=== PATIENT | female | born 1965 | race Caucasian/White ===

== ENCOUNTER 2018-01-06 08:30 | Outpatient (RCR) | payer BC, SELFPAY | END 2018-01-06 08:31 | disposition home or self-care (01) | LOC: PT 08:30 | PROVIDERS: Family Provider Family Medicine; Visit Provider Orthopaedic Surgery Sports Medicine | DX: M25.511 Pain in right shoulder (principal); M75.101 Unspecified rotator cuff tear or rupture of right shoulder, not specified as traumatic | CPT/HCPCS: 97010; 97014; 97016; 97110; 97140; 97163; 97164; G0283 ==

== ENCOUNTER → 2018-05-04 12:20 | Outpatient (CLI) | payer BC, SELFPAY ==
--- NOTE | 2018-05-04 12:29 | XR_ITS ---
XR knee LT 3V HISTORY: ITS.REASON: LEFT KNEE PAIN ORDERING PHYSICIAN: Chapin Mederos MD PATIENT AGE: 53 years COMPARISON: None FINDINGS: No fracture or dislocation. No lytic or blastic change. Normal mineralization. Minimal osteoarthritic changes are present at the medial compartment and patellofemoral joint with minimal osteophyte at the posterior patella and minimal osteosclerosis with slight decrease in the joint space at the medial compartment. There are small rounded soft tissue calcifications along the pretibial region superiorly which may be due to phleboliths. IMPRESSION: Minimal osteoarthritis
== END ==
PROVIDERS: PCP Family Medicine; Visit Provider Family Medicine
DX: M25.562 Pain in left knee (principal)
CPT/HCPCS: 73562

== ENCOUNTER 2020-12-05 18:04 | Emergency (ER) | payer BC, SELFPAY ==
[2020-12-05 18:17] VITALS: BP 139/86; PULSE 68; RESP 19; TEMP 36.8; O2SAT 68; BMI 43.7
--- NOTE | 2020-12-05 18:22 | XR_ITS ---
PROCEDURE INFORMATION: Exam: XR Left Shoulder Exam date and time: 12/05/20 06:22 PM Age: 55 years old Clinical indication: Injury or trauma; Blunt trauma (contusions or hematomas); Shoulder; Left; Patient HX: Fall, pain, PT unable to fully pull arm across body TECHNIQUE: Imaging protocol: XR Left shoulder. Views: 2 or more views. COMPARISON: No relevant prior studies available. FINDINGS: Bones/joints: Normal. Soft tissues: Normal. IMPRESSION: No acute findings.
--- NOTE | 2020-12-05 18:24 | HMH.EDUTC ---
[facility] [place] Disposition Clinical Impression: Shoulder contusion Qualifiers: Encounter type: initial encounter Laterality: left Qualified Code(s): S40.012A - Contusion of left shoulder, initial encounter Disposition: Home, Self-Care Condition on Discharge: Good Instructions: DI for Shoulder Pain, How to Use a Sling, Ibuprofen Additional Instructions: *RICE, Rest the extremity, Ice 15-20 minutes 3-4 times daily, Compress- wear the jesse wrap as discussed as much as possible to help reduce swelling and pain, Elevate the extremity when at rest *Sling is for support and help control swelling, use it except in the shower. Be sure that is not to tight but not to loose either *Elevate when resting *Ibuprofen every 6-8 hours as needed for pain an inflammation if your Doctor has said that you can take it. If need something more can take Tylenol in between doses of Ibuprofen to help Immediately follow up with your family doctor for new or worsening of symptoms, or no noticeable improvement over the next 3-5 days Follow up with Orthopedics as scheduled Return if needed Straight to ER if any life threatening symptoms Referrals: Chapin Mederos MD [Primary Care Provider] - As needed Time of Disposition: 18:51 Medical Decision Making - Patrick Inquiry Pt receiving controlled substance: No Patrick was queried for this patient: No Vital Signs: 12/05/20 18:17 Temperature 98.3 F Temperature Source Oral Pulse Rate [Right Brachial] 68 Respiratory Rate 19 Blood Pressure [Right Arm] 139/86 Blood Pressure Mean [Right Arm] 103 Blood Pressure Source [Right Arm] Automatic Cuff Blood Pressure Position [Right Arm] Sitting 02 Sat by Pulse Oximetry 68 L - Radiology Data #1 Image(s): Shoulder Image Reviewed: Yes I have reviewed radiologist's interpretation IMPRESSION: No acute findings. [facility] [place] HPI - General Stated complaint: AO 12/04/20 Fell;hurt shoulder Time Seen by Provider: 12/05/20 18:24 Mode of Arrival: Ambulatory Description of Symptoms (Recalled from Triage Doc. by RN): Pt states that she was in her yard yesterday afternoon when she stepped in a hole causing her to fall and injuring her left shoulder HEENT Symptoms (Recalled from RN notes): No Resp Symptoms (Recalled from RN notes): No Skin Symptoms (Recalled from RN notes): No MS Symptoms (Recalled from RN notes): Yes Functional Status (Recalled from RN notes): wnl - History of Present Illness Provider Complaint: Patient states she was walking in her yard yesterday when she stepped in a hole and fell landing on her left shoulder and having pain when she tries to raise her arm States that she feels like she tore something State that she tried to get in to her PCP today but couldnt get in and told her to come here and get checked - Related Data Home Medications Medication Instructions Recorded Confirmed lisinopril 20 1 tab PO DAILY tab 11/10/17 10/21/20 mg-hydrochlorothiazide 12.5 mg tablet Allergies Allergy/AdvReac Type Severity Reaction Status Date / Time No Known Allergies Allergy Verified 10/21/20 08:42 - Worker's Comp Is this a Worker's Comp case?: No [facility] History - Hepatitis A Screen Drug use history?: No High risk sexual behaviors?: No History of sexually transmitted infection?: No Currently employed?: No Childcare worker?: No Do you have indoor plumbing?: Yes Do you have electricity?: Yes Attestation statement:: This patient has been screened for Hepatitis A risk factors. I have reviewed the patient's past medical history: Yes Medical History: Reports:: Hypertension Other Surgeries: Yes: Colonoscopy, , Other Amputation: No Fractures: No Comment: Right rotator cuff - Social History Smoking Status: Never smoker Alcohol Intake: never Alcohol Intake Frequency:: holidays/special occasions only Substance Use Type: denies use Occupational Status: employed Housing: house Household Members: spouse Family Hx:: Heart Attack, Diab
[2020-12-05 18:54] VITALS: BP 138/90; PULSE 60; RESP 16; TEMP 36.8; O2SAT 98
== END 2020-12-05 18:55 | disposition home or self-care (01) ==
PROVIDERS: Emergency Provider Nurse Practitioner; PCP Family Medicine
DX: S40.012A Contusion of left shoulder, initial encounter (principal); W17.2XXA Fall into hole, initial encounter; Y92.017 Garden or yard in single-family (private) house as the place of occurrence of the external cause; I10 Essential (primary) hypertension
CPT/HCPCS: 73030; 99202; G0463

== ENCOUNTER → 2021-04-29 08:56 | Outpatient (CLI) | payer BC, SELFPAY ==
--- NOTE | 2021-04-29 08:58 | XR_ITS ---
PROCEDURE: XR DEXA AXIAL SKELETON CLINICAL HISTORY: POST MENOPAUSAL COMPARISON: No exams were available for comparison FINDINGS: The right hip BMD is 0.752 with a T-score of -0.9. The left hip BMD is 0.932 with a T-score of 0.8. The lumbar spine BMD is 1.112 with a T-score of 0.6. IMPRESSION: This patient is considered normal according to the World Health Organization criteria. Fracture risk is low. Based on these results a follow-up exam is recommended in 2 year. Dictated by: Kaushik Gallegos MD 04/29/2021 13:43 Kaushik Gallegos MD in [place] 04/29/2021 13:43
== END ==
PROVIDERS: PCP Family Medicine; Visit Provider Family Medicine
DX: N95.9 Unspecified menopausal and perimenopausal disorder (principal)
CPT/HCPCS: 77080

== ENCOUNTER 2021-08-10 08:30 | Outpatient (RCR) | payer BC, SELFPAY | END 2021-08-10 08:35 | disposition home or self-care (01) | LOC: PT 08:30 | PROVIDERS: PCP Family Medicine; Visit Provider Orthopaedic Surgery | DX: S46.012D Strain of muscle(s) and tendon(s) of the rotator cuff of left shoulder, subsequent encounter (principal); M75.22 Bicipital tendinitis, left shoulder; M75.42 Impingement syndrome of left shoulder; M75.52 Bursitis of left shoulder; Z98.890 Other specified postprocedural states | CPT/HCPCS: 97010; 97014; 97016; 97110; 97140; 97163; 97164; G0283 ==

== ENCOUNTER 2021-09-07 20:16 | Emergency (ER) | payer BC, SELFPAY ==
[2021-09-07 20:37] VITALS: BP 165/78; PULSE 88; RESP 18; TEMP 36.8; O2SAT 99; BMI 51.5
--- NOTE | 2021-09-07 20:38 | XR_ITS ---
PROCEDURE INFORMATION: Exam: XR Right Tibia and Fibula Exam date and time: 09/07/2021 9:15 PM Age: 56 years old Clinical indication: Injury or trauma; Fall; Blunt trauma; Lower leg; Right TECHNIQUE: Imaging protocol: XR Right tibia and fibula. Views: 2 views. COMPARISON: CR XR KNEE RT 3V 09/07/2021 9:12 PM FINDINGS: Bones/joints: No acute fracture or dislocation. Calcaneal spurring. Soft tissues: Soft tissue laceration involving the anterior infrapatellar region anterior to the tibial tuberosity. IMPRESSION: Soft tissue laceration involving the anterior infrapatellar region anterior to the tibial tuberosity. No underlying acute fracture or dislocation
--- NOTE | 2021-09-07 20:38 | XR_ITS ---
PROCEDURE INFORMATION: Exam: XR Chest Exam date and time: 09/07/2021 9:05 PM Age: 56 years old Clinical indication: Injury or trauma; Fall; Blunt trauma (contusions or hematomas) TECHNIQUE: Imaging protocol: XR of the chest. Views: 2 views. COMPARISON: CR XR SHOULDER LT MIN 2V 12/05/2020 6:21 PM FINDINGS: Lungs: Unremarkable. No consolidation. Pleural spaces: Unremarkable. No pleural effusion. No pneumothorax. Heart/Mediastinum: Unremarkable. No cardiomegaly. Bones/joints: Unremarkable. IMPRESSION: No acute findings.
--- NOTE | 2021-09-07 20:38 | XR_ITS ---
PROCEDURE INFORMATION: Exam: XR Right Hip Exam date and time: 09/07/2021 9:09 PM Age: 56 years old Clinical indication: Hip pain; Right hip; Additional info: Fall TECHNIQUE: Imaging protocol: XR Right hip. Views: 2 or 3 views hip with pelvis when performed. COMPARISON: No relevant prior studies available. FINDINGS: Bones/joints: Unremarkable. No acute fracture. Soft tissues: Unremarkable. IMPRESSION: No acute findings.
--- NOTE | 2021-09-07 20:38 | XR_ITS ---
PROCEDURE INFORMATION: Exam: XR Right Knee Exam date and time: 09/07/2021 9:12 PM Age: 56 years old Clinical indication: Injury or trauma; Fall; Blunt trauma and laceration; Right; Patella or knee; Foreign body involvement not specified TECHNIQUE: Imaging protocol: XR Right knee. Views: 3 views. COMPARISON: No relevant prior studies available. FINDINGS: Bones/joints: Normal. No acute fracture or dislocation. Soft tissues: Soft tissue laceration involving the anterior knee anterior to the proximal tibia. IMPRESSION: Soft tissue laceration involving the anterior infrapatellar region but no underlying acute bony abnormality
--- NOTE | 2021-09-07 20:49 | HMH.EDWNDL ---
ED Disposition Clinical Impression: Laceration of lower leg Qualifiers: Encounter type: initial encounter Laterality: right Qualified Code(s): S81.811A - Laceration without foreign body, right lower leg, initial encounter Disposition: Home, Self-Care Condition on Discharge: Good Instructions: DI for Laceration Repair Additional Instructions: suture check in about 3 days and recheck if any problems Prescriptions: cephALEXin [cephALEXin 500mg capsule*] 500 mg PO TID #30 cap Transmission Status: Pending to [id number] Referrals: Altagracia Marlow PA [Primary Care Provider] - - Critical Care Critical Care Time: No Attestation: On 09/07/21, the high probability of a clinically significant, sudden or life threatening deterioration of the following system(s) required my full and direct attention, intervention and personal management. The time I documented below is in addition to time spent performing reported procedures but includes the following listed in this critical care notation. Medical Decision Making - Medical Records Medical records reviewed: Yes: I reviewed the patient's medical records. - Patrick Inquiry Pt receiving controlled substance: No Vital Signs: 09/07/21 20:37 09/07/21 21:00 Temperature 98.2 F Temperature Source Oral Pulse Rate 85 Pulse Rate [Apical] 88 Respiratory Rate 18 Blood Pressure 132/59 L Blood Pressure [Right Arm] 165/78 H Blood Pressure Mean [Right Arm] 107 Blood Pressure Source [Right Arm] Automatic Cuff Blood Pressure Position [Right Arm] Sitting 02 Sat by Pulse Oximetry 99 97 Oxygen Delivery Method Room Air Room Air Orders (Tests/Meds): ED MEDICATIONS Discontinued Medications Generic Name Dose Route Start Last Admin Trade Name Freq PRN Reason Stop Dose Admin Tetanus/Diphtheria Toxoids 0.5 ml 09/07/21 20:38 09/07/21 20:50 Tetanus-Diphth Toxoid, Adult 0.5ml Syr IM 09/07/21 20:39 0.5 ml .ONCE ONE Administration - Radiology Data #1 Image(s): Chest, Pelvis, Hip, Knee, Tib/Fib Image Reviewed: Yes I have reviewed radiologist's interpretation Preliminary Findings: No Fracture Seen Medical Decision Narrative: large lac rt lower leg requiring horz matress suture and simple suture Wound/Laceration HPI - General Chief Complaint: Wound/Laceration Stated Complaint: AO 09/07@1930 LAC r LEG Time Seen by Provider: 09/07/21 20:49 Mode of Arrival: Wheelchair Source of Information: Patient, Medical Record Limitations: No Limitations Description of Symptoms (Recalled from ER Triage Doc. by RN): Patient states that at approximately 1930 she was walking down her outside steps when a wooden one broke cutting her right corley. - History of Present Illness HPI narrative: acute fall with rt ant leg injury with 6 cm lac - c/o of hip pain but no chest or abd pain and no loc Onset (ago): hour(s) Extremity Location: Right: lower leg Place: home Patient tetanus UTD: No Context: fall Associated symptoms: none - Related Data Home Medications Medication Instructions Recorded Confirmed lisinopril 20 1 tab PO DAILY tab 11/10/17 10/21/20 mg-hydrochlorothiazide 12.5 mg tablet Previous Rx's Medication Instructions Recorded cephALEXin [cephALEXin 500mg 500 mg PO TID #30 cap 09/07/21 capsule*] Allergies Allergy/AdvReac Type Severity Reaction Status Date / Time No Known Allergies Allergy Verified 10/21/20 08:42 [facility] History - Hepatitis A Screen Drug use history?: No High risk sexual behaviors?: No History of sexually transmitted infection?: No Currently employed?: No Childcare worker?: No Do you have indoor plumbing?: Yes Do you have electricity?: Yes Attestation statement:: This patient has been screened for Hepatitis A risk factors. I have reviewed the patient's past medical history: Yes Medical History: Reports:: Hypertension Other Surgeries: Yes: Colonoscopy, , Other Amputation: No
[2021-09-07 21:00] VITALS: BP 132/59; PULSE 85; O2SAT 97
--- NOTE | 2021-09-07 21:33 | PC.NURSE ---
Pt back from RAD
[2021-09-07 23:05] VITALS: BP 132/59; PULSE 85; RESP 18; TEMP 37.1; O2SAT 97
== END 2021-09-07 23:08 | disposition home or self-care (01) ==
PROVIDERS: Emergency Provider Emergency Medicine; PCP Physician Assistant
DX: S81.811A Laceration without foreign body, right lower leg, initial encounter (principal); W10.9XXA Fall (on) (from) unspecified stairs and steps, initial encounter; Y92.019 Unspecified place in single-family (private) house as the place of occurrence of the external cause; I10 Essential (primary) hypertension; Z23 Encounter for immunization
CPT/HCPCS: 29505; 12032; 71046; 73502; 73562; 73590; 90714; 96372; 99283

== ENCOUNTER → 2021-09-24 20:44 | Outpatient (CLI) | payer BC, SELFPAY ==
[2021-09-24 21:06] VITALS: BMI 54.6
== END ==
PROVIDERS: PCP Emergency Medicine; Visit Provider Emergency Medicine
DX: S81.811D Laceration without foreign body, right lower leg, subsequent encounter (principal); B95.8 Unspecified staphylococcus as the cause of diseases classified elsewhere
CPT/HCPCS: 87070; 87077; 87186; 87205; J0696

== ENCOUNTER → 2021-09-28 10:36 | Outpatient (CLI) | payer BC, SELFPAY | LOC: LAB 09-29 10:38 → LAB.DROPOF 09-29 10:53 | PROVIDERS: PCP Emergency Medicine; Visit Provider Physician Assistant | DX: S81.811A Laceration without foreign body, right lower leg, initial encounter (principal) | CPT/HCPCS: 87070; 87077; 87186; 87205 ==

== ENCOUNTER → 2022-05-03 17:54 | Outpatient (CLI) | payer BC, SELFPAY ==
[2022-05-03 18:54] LABS: Alanine Aminotransferase 30 U/L (12-78); Albumin Level 4.4 g/dl (3.5-5.0); Albumin/Globulin Ratio 1.5 (1.1-1.8); Alkaline Phosphatase 92 U/L (38-126); Anion Gap 7.5 mEq/L (5-15); Aspartate Amino Transferase 29 U/L (14-36); Bilirubin,Total 0.3 mg/dl (0.2-1.3); Blood Urea Nitrogen 21 mg/dl (7-17); Carbon Dioxide 30 mmol/L (22.0-30.0); Chloride 103 mmol/L (98-107); Chol/HDL Ratio 4.3 (1-3.5); Cholesterol 190 mg/dl (140-200); Estimated Glomerular Filt Rate 86 ml/min (>60); GFR (African American) 104 ML/MIN (>60); Glucose 105 mg/dl (74-100); HDL Cholesterol 44 mg/dl (40-60); Potassium 4.5 mmoL/L (3.5-5.1); Sodium 136 mmol/L (136-145); Total Protein,Serum 7.4 g/dl (6.3-8.2); Triglycerides 196 mg/dl (30-150); VLDL Cholesterol 39 mg/dL (0-40)
[2022-05-03 19:04] LABS: Direct LDL Cholesterol 115.82 mg/dL (100-129)
[2022-05-03 19:07] LABS: Hemoglobin A1C 6.7 % (4.0-6.0)
[2022-05-03 19:11] LABS: 25-OH Vitamin D, Total 16.1 ng/mL (30-100); Basophils # 0.1 K/mm3 (0-0.2); Basophils % 0.8 % (0.1-2.0); Eosinophils # 0.4 K/mm3 (0.0-0.4); Eosinophils % 3.8 % (0.1-12.0); Hematocrit 40.7 % (37.0-47.0); Hemoglobin 13.6 g/dL (12.2-16.2); Lymphocytes # 3.6 K/mm3 (0.7-4.5); Lymphocytes % 33.9 % (10-50); Mean Corpuscular HGB Conc 33.4 g/dL (31.8-35.4); Mean Corpuscular Hemoglobin 29.5 pg (27.0-31.2); Mean Corpuscular Volume 88.2 fl (81-99); Monocytes # 0.4 K/mm3 (0.1-1.0); Monocytes % 3.9 % (1.7-9.3); Neutrophils # 6.2 K/mm3 (1.8-7.8); Neutrophils % 57.6 % (37.0-80.0); Platelet Count 376 K/mm3 (142-424); Red Blood Count 4.62 M/mm3 (4.20-5.40); Red Cell Distribution Width 12.8 % (11.5-17.5); White Blood Count 10.7 K/mm3 (4.8-10.8)
== END ==
PROVIDERS: Visit Provider Physician Assistant
DX: E11.9 Type 2 diabetes mellitus without complications (principal); E55.9 Vitamin D deficiency, unspecified; Z79.84 Long term (current) use of oral hypoglycemic drugs
CPT/HCPCS: 80053; 80061; 82306; 83036; 84443; 85025

== ENCOUNTER → 2022-08-30 09:12 | Outpatient (CLI) | payer BC, SELFPAY | PROVIDERS: PCP Physician Assistant; Visit Provider Physician Assistant | DX: E11.9 Type 2 diabetes mellitus without complications (principal); Z79.84 Long term (current) use of oral hypoglycemic drugs ==

== ENCOUNTER → 2022-08-30 14:20 | Outpatient (CLI) | payer BC, SELFPAY ==
[2022-08-30 15:15] LABS: Albumin Level 4.4 g/dl (3.5-5.0); Albumin/Globulin Ratio 1.5 (1.1-1.8); Chloride 101 mmol/L (98-107); Cholesterol 210 mg/dl (140-200); Globulin 2.9 g/dL (1.3-3.2); Glucose 111 mg/dl (74-100); Total Protein,Serum 7.3 g/dl (6.3-8.2); Triglycerides 189 mg/dl (30-150); VLDL Cholesterol 38 mg/dL (0-40)
[2022-08-30 15:16] LABS: Alanine Aminotransferase 28 U/L (12-78); Alkaline Phosphatase 80 U/L (38-126); Anion Gap 9.6 mEq/L (5-15); Aspartate Amino Transferase 27 U/L (14-36); Bilirubin,Total 0.5 mg/dl (0.2-1.3); Blood Urea Nitrogen 24 mg/dl (7-17); Calcium 9.4 mg/dl (8.4-10.2); Carbon Dioxide 29 mmol/L (22.0-30.0); Chol/HDL Ratio 4.3 (1-3.5); Estimated Glomerular Filt Rate 73 ml/min (>60); GFR (African American) 89 ML/MIN (>60); HDL Cholesterol 49 mg/dl (40-60); Potassium 4.6 mmoL/L (3.5-5.1); Sodium 135 mmol/L (136-145)
[2022-08-30 15:20] LABS: Basophils # 0.1 K/mm3 (0-0.2); Basophils % 0.5 % (0.1-2.0); Eosinophils # 0.3 K/mm3 (0.0-0.4); Eosinophils % 2.5 % (0.1-12.0); Hematocrit 44.1 % (37.0-47.0); Hemoglobin 14.3 g/dL (12.2-16.2); Lymphocytes # 2.6 K/mm3 (0.7-4.5); Lymphocytes % 25.5 % (10-50); Mean Corpuscular HGB Conc 32.3 g/dL (31.8-35.4); Mean Corpuscular Hemoglobin 29.2 pg (27.0-31.2); Mean Corpuscular Volume 90.4 fl (81-99); Mean Platelet Volume 10.9 fl (7.4-10.4); Monocytes # 0.5 K/mm3 (0.1-1.0); Monocytes % 4.5 % (1.7-9.3); Neutrophils # 6.9 K/mm3 (1.8-7.8); Platelet Count 306 K/mm3 (142-424); Red Blood Count 4.88 M/mm3 (4.20-5.40); Red Cell Distribution Width 13.3 % (11.5-17.5); White Blood Count 10.3 K/mm3 (4.8-10.8)
[2022-08-30 15:27] LABS: Direct LDL Cholesterol 122.06 mg/dL (100-129)
[2022-08-30 15:33] LABS: 25-OH Vitamin D, Total 26.3 ng/mL (30-100)
[2022-08-30 15:46] LABS: Thyroid Stimulating Hormone 1.08 uIU/mL (0.465-4.68)
[2022-08-30 15:56] LABS: Hemoglobin A1C 6.1 % (4.0-6.0)
== END ==
PROVIDERS: PCP Physician Assistant; Visit Provider Physician Assistant
DX: E11.9 Type 2 diabetes mellitus without complications (principal); E55.9 Vitamin D deficiency, unspecified; Z79.84 Long term (current) use of oral hypoglycemic drugs
CPT/HCPCS: 80053; 80061; 82306; 83036; 84443; 85025

== ENCOUNTER 2024-10-27 17:08 | Emergency (ER) | payer BC, SELFPAY ==
--- NOTE | 2024-10-27 17:11 | ED_ITS ---
Discharge Plan Disposition Patient Disposition: Home, Self-Care Condition: Good Prescriptions Prescriptions: No Action krill oil 500 mg capsule PO colestipol 1 gram tablet 1 g PO BID aspirin [Adult Aspirin Regimen] 81 mg tablet,delayed release (DR/EC) 81 mg PO DAILY Qty: 90 0RF (DME) lancets [Acti-Ky Lancets] 28 gauge misc See Rx Instructions .Route Qty: 100 12RF Rx Instructions: QID testing cholecalciferol (vitamin D3) 25 mcg (1,000 unit) capsule 25 mcg PO DAILY Qty: 90 3RF (DME) blood-glucose meter [Blood Glucose Monitoring] Kit See Rx Instructions .ROUTE .MEDSUPPLY Qty: 1 0RF Rx Instructions: As directed (DME) Accu-Chek Guide test strips Strip See Rx Instructions .ROUTE .COMPLEX Qty: 150 12RF Dose Instruction: USE 1 STRIP TO CHECK BLOOD GLUCOSE 4 TIMES DAILY Rx Instructions: USE 1 STRIP TO CHECK BLOOD GLUCOSE 4 TIMES DAILY ergocalciferol (vitamin D2) 1,250 mcg (50,000 unit) capsule See Rx Instructions .ROUTE .COMPLEX Qty: 14 0RF Dose Instruction: TAKE ONE CAPSULE BY MOUTH ONCE A WEEK Rx Instructions: TAKE ONE CAPSULE BY MOUTH ONCE A WEEK metformin 500 mg tablet See Rx Instructions .ROUTE .COMPLEX Qty: 180 0RF Dose Instruction: TAKE ONE TABLET BY MOUTH 2 TIMES A DAY Rx Instructions: TAKE ONE TABLET BY MOUTH 2 TIMES A DAY Ozempic 0.25 mg or 0.5 mg (2 mg/3 mL) pen injector See Rx Instructions .ROUTE .COMPLEX Qty: 9 0RF Dose Instruction: INJECT 0.5 MG SUBCUTANEOUSLY ONCE WEEKLY Rx Instructions: INJECT 0.5 MG SUBCUTANEOUSLY ONCE WEEKLY lisinopril-hydrochlorothiazide 20-12.5 mg tablet See Rx Instructions .ROUTE .COMPLEX Qty: 90 0RF Dose Instruction: TAKE ONE TABLET BY MOUTH ONCE A DAY Rx Instructions: TAKE ONE TABLET BY MOUTH ONCE A DAY Referrals Follow up/Referrals: Altagracia Marlow PA [Primary Care Provider, Medical] - See instructions Activity Restrictions/Add. Instructions Additional Instructions/Restrictions: You may wash your wound with soap and water. Please keep dry and if you have to cover cover with a clean dry nonocclusive dressing. If you have any increasing redness pain swelling or drainage return to the emergency department. Your stitches need to come out in about 10 days. You may return to the [facility] PCP or the ER for suture removal. Clinical Impressions Clinical Impression: Laceration of hand, left Qualifiers: Encounter type: initial encounter Foreign body presence: without foreign body Q ualified Code(s): S61.412A - Laceration without foreign body of left hand, initial encounter Instructions Patient Instructions: DI for Laceration Repair Print Language Print Language: [place] Zeal[place] Discharge ED Provider: Abdirashid Rodriguez General Adult HPI <NILO Hernandes - Last Filed: 10/27/24 17:56> General Chief complaint: Wound/Laceration Stated complaint: A/O 16:00 6-14 cut left hand on side Time Seen by Provider: 10/27/24 17:10 History of Present Illness HPI narrative: Patient presents for evaluation of left hand laceration. Patient was cutting frozen chicken and the knife slipped cutting the ulnar side of her hand on the edge proximal to the fifth digit. She has no numbness tingling no loss of motor or sensory. Related Data Home Medications ?Medication ?Instructions ?Recorded ?Confirmed krill oil 500 mg capsule mg PO 09/10/21 10/07/22 colestipol 1 gram tablet 1 g PO BID 10/07/22 10/07/22 Previous Rx's ?Medication ?Instructions ?Recorded lancets 28 gauge (Acti-Ky #100 ea 03/19/22 Lancets) aspirin 81 mg tablet,delayed 81 mg PO DAILY #90 tabs 0 08/30/22 release (Adult Aspirin Regimen) cholecalciferol (vitamin D3) 25 25 mcg PO DAILY #90 ca ps 08/30/23 mcg (1,000 unit) capsule blood-glucose meter (Blood Glucose #1 ea 11/07/23 Monitoring kit) blood sugar diagnostic (Accu-Chek #150 ea 11/28/23 Guide test strips) ergocalciferol (vitamin D2) 1,250 See Rx Instructions .Route 01/23/24 mcg (50,000 unit) capsule .COMPLEX #14 caps lisinopril 20 See Rx Instructions .Route 0 01/23/24 mg-hydrochlorothiazide 12.5 mg .COMPLEX #90 tabs tablet metformin 500 mg tablet See Rx Instructions .Route 0 01/23/24 .COMPLEX #180 tabs semaglutide 0.25 mg or 0.5 mg (2 See Rx Instructions . Route 01/23/24 mg/3 mL) subcutaneous pen injector .COMPLEX #9 mL (Ozempic) Allergies Allergy/AdvReac Type Severity Reaction Status Date / Time No Known Allergies Allergy Verified 10/07/22 08:28 [facility] <NILO Hernandes - Last Filed: 10/27/24 17:56> [facility] Disclaimer: The information contained in this section may have been updated after the patient was seen, as this information can be updated by other users. Medical History Type 2 diabetes mellitus Surgical History History of hysterectomy for cancer Rotator cuff disorder Social History Smoking Status: Never smoker alcohol intake: never substance use type: denies use current occupational status: employed Travel in the last 8 weeks?: None household members: spouse housing: house Have you lived/traveled outside [place] in past 30 days?: No Contact w/someone who lives/traveled outside US past 30 days?: No Exposure to someone with infectious disease in past 14 days?: No Do you have a fever (greater than 100.4 F or 38 C)?: No Have you tested positive for COVID-19?: No Exposed to someone with COVID-19 in past 14 days?: No Do you have a sore throat?: No Do you have a cough?: No Do you have any weakness?: No Do you have any diarrhea?: No Are you experiencing any unusual bleeding?: No Do you have any muscle aches/pain?: No Do you have any abdominal pain?: No Are you experiencing loss of taste or smell?: No Other Medical History Have you received the Flu Vaccine for this season: Yes Have you received the Pneumonia Vaccine: No <NILO Hernandes - Last Filed: 10/27/24 17:56> ROS Obtained: Yes Systems reviewed as appropriate & no additional complaints except as documented Physical Exam <NILO Hernandes - Last Filed: 10/27/24 17:56> General General appearance: alert and in no apparent distress Respiratory Respiratory exam: Present normal lung sounds bilaterally Cardiovascular Cardiovascular exam: Present regular rate Expanded Upper Extremity Exam Left: Hand L/R front image: 2 1. laceration Hand L/R back image: 2 1. 5 cm flap laceration Neurological Exam Neurological exam: Present alert and oriented X3 Medical Decision Making <NILO Hernandes - Last Filed: 10/27/24 17:56> Medical Records Screening: Per USPSTF and CDC recommendations, given the prevalence of disease in our region, it is our hospital?s policy to screen for HIV and viral Hepatitis for all patients aged 18 and over and those with ongoing risk factors. Patrick Inquiry Pt receiving controlled substance: No Vital Signs: 10/27/24 17:17 10/27/24 17:22 10/27/24 17:51 Temperature 98.2 F 98.2 F Temperature Source Oral Pulse Rate 72 70 Pulse Rate [Left Radial] 73 Respiratory Rate 20 20 Blood Pressure 163/76 H 132/61 Blood Pressure [Right Arm] 163/76 H Blood Pressure Mean [Right Arm] 105 02 Sat by Pulse Oximetry 97 97 Oxygen Delivery Method Room Air Room Air Room Air Orders (Tests/Meds): ED MEDICATIONS Discontinued Medications Generic Name Dose Route Start Last Admin Trade Name Freq PRN Reason Stop Dose Admin Lidocaine/Epinephrine 10 ml 10/27/24 17:25 10/27/24 17:51 Lidocaine 1% W/Epi 1:100,000 20ml Vial SQ 10/27/24 17:26 Not Given ONCE ONE Medical Decision Narrative: In summary patient is a 59-year-old female who presents to the emergency department for evaluation of left hand laceration. Patient is dynamically stable upon arrival, afebrile. Physical exam is remarkable for 5 cm flap laceration on the edge on the ulnar side of her left hand. It is proximal to the MCP joint of the fifth digit patient has full range of motion is neurovascular intact distally.. Differential diagnosis includes simple versus complex laceration. Initial workup will be conducted with exam after irrigation and local anesthetic. Initial interventions were considered with tetanus however patient is up-to-date thus deferred. Initial workup performed by me and after adequate anesthesia is a very superficial flap laceration does not penetrate into the muscle body or deeper structures. Given this wound was repaired primarily with 10 4 point 0 nylon sutures in an interrupted fashion with good hemostasis and approximation. Patient is appropriate for discharge with wound care instructions and strict return precautions. <Abdirashid Rodriguez MD - Last Filed: 10/27/24 18:25> Vital Signs: 10/27/24 17:17 10/27/24 17:22 10/27/24 17:51 Temperature 98.2 F 98.2 F Temperature Source Oral Pulse Rate 72 70 Pulse Rate [Left Radial] 73 Respiratory Rate 20 20 Blood Pressure 163/76 H 132/61 Blood Pressure [Right Arm] 163/76 H Blood Pressure Mean [Right Arm] 105 02 Sat by Pulse Oximetry 97 97 Oxygen Delivery Method Room Air Room Air Room Air Orders (Tests/Meds): ED MEDICATIONS Discontinued Medications Generic Name Dose Route Start Last Admin Trade Name Freromelia PRN Reason Stop Dose Admin Lidocaine/Epinephrine 10 ml 10/27/24 17:25 10/27/24 17:51 Lidocaine 1% W/Epi 1:100,000 20ml Vial SQ 10/27/24 17:26 Not Given ONCE ONE Medical Decision Narrative: In summary patient is a 59-year-old female who presents to the emergency department for evaluation of left hand laceration. Patient is dynamically stable upon arrival, afebrile. Physical exam is remarkable for 5 cm flap laceration on the edge on the ulnar side of her left hand. It is proximal to the MCP joint of the fifth digit patient has full range of motion is neurovascular intact distally.. Differential diagnosis includes simple versus complex laceration. Initial workup will be conducted with exam after irrigation and local anesthetic. Initial interventions were considered with tetanus however patient is up-to-date thus deferred. Initial workup performed by me and after adequate anesthesia is a very superficial flap laceration does not penetrate into the muscle body or deeper structures. Given this wound was repaired primarily with 10 4 point 0 nylon sutures in an interrupted fashion with good hemostasis and approximation. Patient is appropriate for discharge with wound care instructions and strict return precautions. I was consulted by the BOYD, and we discussed the complexity of the problems being addressed. I approved the treatment and management plan for this patient's care in the Emergency Department, thus performing a substantive portion of the medical decision making. Abdirashid Rodriguez MD Procedures <NILO Hernandes - Last Filed: 10/27/24 17:56> Laceration Laceration 1: Site: hand Side (If applicable): left Size (cm): 5 Description: flap Depth: simple, single layer Local Anesthetic: bupivacaine 0.25% Amount of anesthesia used (mL): 10 Pre-repair: wound explored, irrigated extensively and deep structures intact Skin layer closed with: nylon Size (cm): 4-0 Number of sutures: 10 Technique: simple, interrupted Critical Care <NILO Hernandes - Last Filed: 10/27/24 17:56> Critical Care Time Critical Care Time: No
--- OUTSIDE RECORDS SUMMARY | 2024-10-27 17:15 | XMS_ITS | Data Portability ---
Author Organization [facility] Address [address] [facility] [address] [place] [address] Assessment No assessment recorded. Plan of Treatment Reminders Order Date Submit Date Provider Last Modified By Organization Details Last Modified Time Details Appointments None recorded. Lab None recorded. Referral physical therapy shoulder referral 2017 018 [email or web address] Not available 8 16:38:57 physical therapy shoulder referral 2017 018 [email or web address] Not available 8 12:50:03 Procedures None recorded. Surgeries None recorded. Imaging None recorded. Medication Orders Percocet 5 mg-325 mg tablet 2017 [email or web address] [place] [address], [address] [place] [address], [id number], 8 09:44:37 Patient TargetsNo targets recorded. Patient InstructionsNo instructions recorded. Reason for Referral Referring Physician: Huber Rubio, Orthopedic Surgery, Encounter Date: 11/01/2017 Referring Physician: Huber Rubio Orthopedic Surgery, Encounter Date: 11/29/2017 Procedures Surgical History Date Name Laterality Status Provider Name and Address Organization Details Recorded Time 8 Op Note completed HUBER RUBIO MD [address] [place], [address], [facility] 09/29/2017 09:26:39 8 SHOULDER ARTHROSCOPY WITH ROTATOR CUFF REPAIR (SURG) completed Danie Guidry [facility] 10/11/2017 11:24:17 Imaging Results None recorded. Procedure Notes None recorded. Medical Equipment None Reported. Allergies No known drug allergies Medications Name Sig Start Date Stop Date Status Note LastModified by Organization Details LastModified Time Percocet 5 mg-325 mg tablet 1-2 PO Q 4-6 hours Prn Post - Op Pain 018 02/03 completed Not Available Not Available Not Available Nux Vomica 30x soluble tablet Take by oral route. active Not Available Not Available No t Available lisinopril active Not Available Not Av ailable Not Available Vitals Date Recorded Body height Body mass index (BMI) Body weight Provider Name and Address Organization Details Last Updated DateTime 10/12/2017 149.86 cm 42.4 kg/m2 01230.4 g Shirlene Kate [facility] 10/12/2017 11:47:54 Date Recorded Body height Body mass index (BMI) Body weight Systolic blood pressure Diastolic blood pressure Provider Name and Address Organization Details Last Updated DateTime 11/01/2017 149.86 cm 42.4 kg/m2 77229.4 g 147 mm[Hg] 79 mm[Hg] [facility] 8 11:28:29 Date Recorded Body height Body mass index (BMI) Body weight Systolic blood pressure Diastolic blood pressure Provider Name and Address Organization Details Last Updated DateTime 11/29/2017 149.86 cm 42.4 kg/m2 04534.4 g 132 mm[Hg] 67 mm[Hg] Ber[facility] 8 10:20:51 Date Recorded Body height Body mass index (BMI) Body weight Provider Name and Address Organization Details Last Updated DateTime 02/03/2018 149.86 cm 42.4 kg/m2 45244.4 g [facility] 02/03/2018 09:42:49 Social History Question Answer Notes LastModified by Organizat ion Details LastModified Time Tobacco Smoking Status Never Smoker Bertha [facility] 07/29/2017 09:11:28 What Was The Date Of Your Most Recent Tobacco Screening? 02/03/2018 Information n ot available 07/03/2019 Sex: Unknown Functional Status None recorded. Mental Status None recorded. Family History Nothing Reported. Medical History Condition Response Diabetes N Bleeding Disorder N Thyroid Disease N Arthritis N Heart Conditions N Blood Clot N Hernia N Tuberculosis N Migraines N Stroke N COPD N Asthma N Pneumonia N Blood Thinners N Sleep Apnea N High Cholesterol N Anesthesia Complications N Liver Disease N Heart Attack (SD) N Hypertension Y Kidney Disease N Gynecological HistoryNo gynecological history recorded. Obstetrics History GPAL:G 0 P 0 0 0 0 Past Encounters Encounter ID Performer Location Encounter Start Date Encounter Closed Date Diagnosis/Indication Diagnosis SNOMED-CT Code Diagnosis ICD10 Code Diagnosis Note [id number] APOLINAR GUPTA PA-C [facility] [address] [place] [address] 07/29/2017 09:01:02 07/29/2017 10:42:06 Pain of shoulder region 80237263 M25.511 Acute injury, no previous problems, inability to raise arm - clinically presents as acute traumatic rotator cuff tear XRs reviewed from [facility] 07/23/17 show no evidence of fracture or dislocatio n, normal alignment, mild degenerati ve changes Recommend obtaining MRI to assess integrity of rotator cuff w/ close follow up Scapular based HEP demonstrat ed. Safe use of OTC meds PRN. Counselled on precaution s at length. [id number] APOLINAR GUPTA PA-C [facility] [address] [place] [address] 08/12/2017 09:05:32 08/12/2017 11:55:18 Full thickness rotator cuff tear [id number] M75.121 MRI (08/09/17) reviewed with patient and her . There is a large full-thick ness rotator cuff tear of the supraspina tus and majority of the infraspina tus. There is a partial thickness subscapula ris tear. Biceps tendon is not well visualized . Degenerati ve labrum changes. Discussed various treatment options at length. Risks and benefits of arthroscop ic rotator cuff repair discussed at length. Research shows these large, traumatic tears do better with surgical interventi on within the first 6-8 wks after injury. Patient would like to proceed with surgery. She will check her work schedule and call to schedule surgery. Counselled on precaution s at length. Dr. Rubio was present to discuss surgical procedure and protocols. I spent 25 minutes of face-to-fa ce time with the patient with greater than 50% of the time spent counseling . [id number] HUBER RUBIO MD SURGERY SCHEDULE [address] [place] [address] 09/29/2017 06:18:01 09/29/2017 06:25:02 Postoperative care [id number] Z48.89 [id number] APOLINAR GUPTA PA-C [facility] [address] [place] [address] 10/12/2017 11:08:27 10/12/2017 12:11:53 Postoperative care [id number] Z48.89 Doing well 2 wks s/p Right shoulder arthroscop y with double row arthroscop ic rotator cuff repair, Limited debridemen t glenohumer al joint, Arthroscop ic biceps tenodesis and Limited subacromia l decompress ion HEP, will hold on formal PT until next visit Counselled on precaution s at length RTO as scheduled or sooner if needed, advised to call office with any questions/ concerns. [id number] HUBER RUBIO MD [facility] [address] [place] [address] 11/01/2017 11:04:31 11/01/2017 15:33:31 Postoperative care [id number] Z48.89 we reviewed her arthroscop ic images. Massive retracted tear should be and the delayed rehabilita tion program. We discussed limited ability to come out of her sling. Initiate her therapy at 6 weeks. Detail therapy program was written out and given by hand. We'll see her back in 4 weeks to discontinu e the sling and initiate active range of motion movement [id number] HUBER RUBIO MD [facility] [address] [place] [address] 11/29/2017 09:37:24 11/29/2017 15:48:17 Postoperative care [id number] Z48.89 we reviewed her arthroscop ic images. Massive retracted tear should be and the delayed rehabilita tion program. loks well, progress trength, function, no effort/ply o n [id number] HUBER RUBIO MD [facility] [address] [place] [address] 02/03/2018 09:23:13 02/03/2018 09:59:19 Postoperative care [id number] Z48.89 HEP and precaution s up until end of year given massive tear - great result Health Concerns Section Related Observation LastModified by Organization Detai ls LastModified Time None Recorded Concern Status LastModified by Organization Details LastModified Time None Recorded Advance Directives Directive None Recorded Payers Insurance Date Sequence Insurance Name Policy Number Policy Garcia Covered Member ID Garcia Member ID Guarantor Name 04/09/2020 1 [place] [id number] Kenia Mclaughlin [id number] Kenia Mclaughlin 09/22/2020 PAYMENT PLAN Kenia Mclaughlin Notes Date Note Type Note Provider Name and Address Organization Details Recorded Time 10/12/2017 text/html Post Operative N ote Patient in today following a Right shoulder arthroscopy with double row arthroscopic rotator cuff repair, Limited debridement glenohumeral joint, Arthroscopic biceps tenodesis and Limited subacromial decompression by Dr. Rubio General Medical Conditions: Reviewed Medications: Reviewed History of Injury: acute traumatic rotator cuff tear History Following Surgery: Reports uneventful post op period Pain Medication Frequency: only taking two-three pills per day PRN Dressing Removed Wound Assessment: nylon sutures removed without complication, skin edges well approximated, benign Wound Care Instructions given to Patient Patient instructed on pain and edema management Patient instructed on home exercise program HEP: pendulums, scapular squeezes, AROM elbow, wrist, hand Sling OK to come out of sling several times a day for elbow, wrist, hand ROM and hygiene, otherwise at all times Patient has Follow-Up appointment with Dr. Rubio in 3 weeks will hold on PT at this time Doing well. Happy with progress, expect continued improvement. NAD, A&Ox3. Wound healing well without evidence of complication. NVI. Sensation intact. Appropriate, nonpainful ROM elbow, wrist, hand, digits. RTO as scheduled or PRN. APOLINAR GUPTA PA-C [address] [place], [address], [facility] 10/12/2017 16:39:43 11/01/2017 text/html Kenia is doing quite well. Pain is very mild. No problems or complications notable.SURGERY DATE:September 29, 2017 PREOPERATIVE DIAGNOSIS:right shoulder traumatic massive retracted tear of the supraspinatus and infraspinatus tendons with disruption of the biceps junior POSTOPERATIVE DIAGNOSIS:same PROCEDURE: right shoulder arthroscopy with double row arthroscopic rotator cuff repair Limited debridement glenohumeral joint Arthroscopic biceps tenodesis Limited subacromial decompression HUBER RUBIO MD [address] [place], [address], [facility] 11/01/2017 11:50:55 11/29/2017 text/html 10 weeks post ma ssice RCR feels good no complicAITONS HUBER RUBIO MD [address] [place], [address], [facility] 11/29/2017 10:56:14 02/03/2018 text/html overall feel wel l, making improvementsstill soreness released form PT on good progress SURGERY DATE:September 29, 2017 PREOPERATIVE DIAGNOSIS:right shoulder traumatic massive retracted tear of the supraspinatus and infraspinatus tendons with disruption of the biceps junior POSTOPERATIVE DIAGNOSIS:same PROCEDURE: right shoulder arthroscopy with double row arthroscopic rotator cuff repair Limited debridement glenohumeral joint Arthroscopic biceps tenodesis Limited subacromial decompression HUBER RUBIO MD [address] [place], [address], [facility] 02/03/2018 09:57:32 OBGyn Episode No OBEpisode recorded.
--- OUTSIDE RECORDS SUMMARY | 2024-10-27 17:15 | XMS_ITS | Referral Summary ---
Author Organization [employer] Address [address] [place] [address] Care Team Providers Care Wheel Braider Name Role Phone Altagracia Marlow PA-C Primary Care Provider [phone] Aspen Ralph MD Unavailable Social History Tobacco Use Types Packs/Day Years Used Date Smoking Tobacco: Never Assessed Interpersonal Safety Answer Date Record ed Family or friends hurt you Not on file 06/03 Family or friends insult you Not on file Family or friends threaten you Not on file 0 06/03/2023 Family or friends scream or curse at you Not on file 06/03/2023 Housing Stability Answer Date Recorded Living situation today Not on file Living situation problems Not on file 2023 Food Insecurity Answer Date Recorded Food run out past 12 months Not on file 05/16 Food did not last past 12 months Not on file 06/03/2023 Employment Answer Date Recorded Help finding and keeping a job Not on file 0 06/03/2023 Family and Community Support Answer Ron e Recorded Help with Day to Day Activities Not on file 06/03/2023 Feeling Lonely or Isolated Not on file 06/03 Educational Attainment Answer Date Chase rded Speak language other than Lao at home Not on file 06/03/2023 Want help with school or training Not on file 06/03/2023 Depression Answer Date Recorded PHQ-2 Risk Not on file 06/03/2023 Disabilities Answer Date Recorded Difficulty concentrating Not on file 024 Difficulty doing errands alone Not on file 0 06/03/2023 Substance Use Answer Date Recorded Used prescription meds for non-medical reasons N ot on file 06/03/2023 Used illegal drugs past 12 months Not on file 06/03/2023 Comments Unknown Sex and Gender Information Value Date Recorded Sex Assigned at Female 11/10/2021 3:32 PM CDT Legal Sex Female 3:32 PM CDT Gender Identity Female 11/10/2021 3:32 PM CDT Sexual Orientation Not on file Plan of Treatment Upcoming Encounters Date Type Department Care Team (Late st Contact Info) Description 11/14/2024 4:00 PM EDT Appointment [address] [address] Procedures Procedure Name Priority Date/Time Associated Diagnosis Comments MM DIGITAL MAMMO SCREEN WITH JENNIE BILATERAL Routine 11/14/2023 4:36 PM EDT Visit for screening mammogram from Last 3 Months or Most Recently Relevant to Health Maintenance Results * MM digital mammo screen with jennie bilateral (11/14/2023 4:36 PM EDT) Anatomical Region Laterality Modality Breast Bilateral Mammography 11/14/2023 5:36 PM EDT Impressions 11/14/2023 5:55 PM EDT FINAL IMPRESSION: Stable mammogram. No findings suspicious for malignancy. Bi-RADS: ACR BI-RADS 2: Benign findings. RECOMMENDATIONS: Annual screening mammography. A letter including results and recommendations was sent to the patient. Density notification was included for patients with pattern 3 or 4 breast tissue. Patient information was entered into a reminder system with a target due date for the next mammogram. At our facility, a havasupai marker is positioned over a visible skin lesion and a linear marker is used to indicate a scar. A triangular marker is placed on a self reported palpable finding. Note: Mammography does not detect approximately 10-15% of breast cancers. An annual clinical breast exam by the patient's breast care physician and regular monthly self breast exams by the patient are integral parts of breast cancer screening, in addition to annual mammography. A normal mammogram does not completely exclude the presence of breast cancer, especially if there is an abnormal finding on physical exam. When clinically indicated, a biopsy should not be deferred because of a normal mammogram report. Narrative 11/14/2023 5:55 PM EDT PROCEDURE: Digital screening mammogram with Digital Breast Tomosynthesis (DBT). REASON FOR EXAM: Routine screening. FAMILY HISTORY: Weak family history of breast cancer. COMPARISON STUDY: 2022 through 2015 from [facility] FINDINGS: Craniocaudal and mediolateral oblique images of both breasts were obtained in 2D and DBT modes. Synthesized views were reconstructed from DBT data. The breast tissue has pattern b (scattered fibroglandular densities). Scattered subcentimeter oval and round masses are present consistent with fluctuating cysts. There is no evidence of dominant mass, architectural distortion, or suspicious calcifications. The mammogram was interpreted with the benefit of computer aided detection (CAD). Altagracia Marlow PA-C IMG MAMMOGRAPHY ORDERABLES Fi nal Result from Last 3 Months or Most Recently Relevant to Health Maintenance Insurance BLUE CROSS/BLUE SHIELD Care Teams Wheel Braider Relationship Specialty Start Date End Date Altagracia Marlow PA-C [address] [place] [address] PCP - General Physician Foreclosure Clerk 12/31/22 Aspen Ralph MD [address] [address] Referring Physician Gynecology 12/31/22
--- OUTSIDE RECORDS SUMMARY | 2024-10-27 17:15 | XMS_ITS ---
Author Organization Unknown Medications Medication Instructions Effective Dates (start - stop) Status 0.25 MG, 0.5 MG Dose 1.5 ML semaglutide 1.34 MG/ML Pen Injector [Ozempic] 8807-89-45O98:00:00.000+00 :00 - Completed - 5816-64-27I80:00 :00.000+00 :00 - Completed - 5135-05-07B09:00 :00.000+00 :00 - Completed 3 ML semaglutide 1.34 MG/ML Pen Injector [Ozempic] 0253-37-39M00:00:00.000+00 :00 - Completed 0.25 MG, 0.5 MG Dose 1.5 ML semaglutide 1.34 MG/ML Pen Injector [Ozempic] 0181-92-91C64:00:00.000+00 :00 - Completed metformin hydrochloride 500 MG Oral Tablet 1479-65-57T09:00:00.000+00 :00 - Completed colestipol hydrochloride 100 0 MG Oral Tablet 1483-96-39P02:00:00.000+00 :00 - Completed ergocalciferol 1.25 MG Oral Capsule 2179-10-67N20:00:00.000+00 :00 - Completed metformin hydrochloride 500 MG Oral Tablet 9204-38-40W10:00:00.000+00 :00 - Completed metformin hydrochloride 500 MG Oral Tablet 9648-69-45A09:00:00.000+00 :00 - Completed ergocalciferol 1.25 MG Oral Capsule 0331-01-49X31:00:00.000+00 :00 - Completed metformin hydrochloride 500 MG Oral Tablet 8117-87-31P53:00:00.000+00 :00 - Completed metformin hydrochloride 500 MG Oral Tablet 1578-79-17E12:00:00.000+00 :00 - Completed ergocalciferol 1.25 MG Oral Capsule 3461-23-50L88:00:00.000+00 :00 - Completed 3 ML semaglutide 1.34 MG/ML Pen Injector [Ozempic] 9435-92-32B88:00:00.000+00 :00 - Completed ergocalciferol 1.25 MG Oral Capsule 2767-27-38M08:00:00.000+00 :00 - Completed 3 ML semaglutide 1.34 MG/ML Pen Injector [Ozempic] 9114-17-62S91:00:00.000+00 :00 - Completed metformin hydrochloride 500 MG Oral Tablet 4231-86-04F95:00:00.000+00 :00 - Completed metformin hydrochloride 500 MG Oral Tablet 0677-64-80M11:00:00.000+00 :00 - Completed metformin hydrochloride 500 MG Oral Tablet 3414-26-69A96:00:00.000+00 :00 - Completed metformin hydrochloride 500 MG Oral Tablet 6613-61-94P09:00:00.000+00 :00 - Completed metformin hydrochloride 500 MG Oral Tablet 8743-26-71D22:00:00.000+00 :00 - Completed ergocalciferol 1.25 MG Oral Capsule 9324-05-60S49:00:00.000+00 :00 - Completed colestipol hydrochloride 100 0 MG Oral Tablet 6317-91-94P31:00:00.000+00 :00 - Completed atorvastatin 10 MG Oral Tablet 184-33-14H67:00:00.000+00 :00 - Completed colestipol hydrochloride 100 0 MG Oral Tablet 9209-86-17R56:00:00.000+00 :00 - Completed metformin hydrochloride 500 MG Oral Tablet 3343-15-08D22:00:00.000+00 :00 - Completed metformin hydrochloride 500 MG Oral Tablet 3817-09-08O81:00:00.000+00 :00 - Completed colestipol hydrochloride 100 0 MG Oral Tablet 7980-27-73R50:00:00.000+00 :00 - Completed ergocalciferol 1.25 MG Oral Capsule 3308-05-95L06:00:00.000+00 :00 - Completed - 9783-29-08Q47:00 :00.000+00 :00 - Completed - 4497-39-15I02:00 :00.000+00 :00 - Completed - 2906-36-44G94:00 :00.000+00 :00 - Completed aspirin 81 MG Delayed Releas e Oral Tablet 7843-56-99H24:00:00.000+00 :00 - Completed oxycodone hydrochloride 5 MG Oral Tablet 0059-71-32Y32:00:00.000+00 :00 - Completed - 5886-93-93Q16:00 :00.000+00 :00 - Completed - 0217-33-96M66:00 :00.000+00 :00 - Completed - 9867-51-43B66:00 :00.000+00 :00 - Completed ondansetron 4 MG Disintegrat ing Oral Tablet 7405-96-61H86:00:00.000+00 :00 - Completed - 6426-56-02N11:00 :00.000+00 :00 - Completed - 8265-95-26A46:00 :00.000+00 :00 - Completed - 8730-32-42V03:00 :00.000+00 :00 - Completed - 4250-60-20L04:00 :00.000+00 :00 - Completed - 9295-94-97V40:00 :00.000+00 :00 - Completed - 8653-00-74H61:00 :00.000+00 :00 - Completed - 2698-47-28C93:00 :00.000+00 :00 - Completed - 0674-26-00Q48:00 :00.000+00 :00 - Completed ergocalciferol 1.25 MG Oral Capsule 6892-82-49J72:00:00.000+00 :00 - Completed hydrochlorothiazide 12.5 MG / lisinopril 20 MG Oral Tablet 9468-57-04G95:00:00.000+0 0 :00 - Completed hydrochlorothiazide 12.5 MG / lisinopril 20 MG Oral Tablet 6197-13-84S24:00:00.000+0 0 :00 - Completed hydrochlorothiazide 12.5 MG / lisinopril 20 MG Oral Tablet 9571-81-88B64:00:00.000+0 0 :00 - Completed hydrochlorothiazide 12.5 MG / lisinopril 20 MG Oral Tablet 3874-59-70B52:00:00.000+0 0 :00 - Completed polyethylene glycol 3350 236 000 MG / potassium chloride 2970 MG / sodium bicarbonate 6740 MG / sodium chloride 5860 MG / sodium sulfate 58194 MG Powder for Oral Solution [Gavilyte-G] 0986-82-40T95:00:00.000+00 :00 - Completed hydrochlorothiazide 12.5 MG / lisinopril 20 MG Oral Tablet 8829-47-97G21:00:00.000+0 0 :00 - Completed Patient Care team information Name Category Status Period Participants - - Proposed period not known -
--- OUTSIDE RECORDS SUMMARY | 2024-10-27 17:15 | XMS_ITS | Patient Health Record ---
Author Organization [facility] Address [address] [place] [address] Care Team Providers Care Supervisor [place] Name Role Phone Aspen Ralph Unavailable [phone] Allergies No Known Allergies Reason For Referral No Information Medications Medication SIG (Take, Route, Frequency, Duration) Notes Start Date End Date Status Aspirin 81 12/17/2022 Active Colestipol HCl 1 GM Tablet Oral; Duration: 30 Days Active Drisdol Active Pepcid Active Vitamin D Active metFORMIN HCl ER Act fany Ozempic Active Krill Oil 12/17/2022 Active Lisinopril-hydroCHLOROthia zide 20-12.5 MG Tablet Oral; Duration: 30 Active Social History Tobacco Use: Social History Observation Description Date Details (start date - stop date) Never Smoker NA - NA Sex Assigned At : Social History Observation Description Sex Assigned At Female Social History Drugs/Alcohol: Social Info Question Answer Notes Drugs Have you used drugs other than those for medical reasons in the past 12 months? No Alcohol Screen Did you have a drink containing alcohol in the past year? Yes How often did you have a drink containing alcohol in the past year? Monthly or less (1 point) How many drinks did you have on a typical day when you were drinking in the past year? 1 or 2 drinks (0 point) How often did you have 6 or more drinks on one occasion in the past year? Never (0 point) Points 1 Interpretation Negative Tobacco Use: Social Info Question Answer Notes Tobacco Use/Smoking Are you a nonsmoker Problems Problem Type SNOMED Code ICD Code Onset Dates Problem Status W/U Status Risk Notes Problem Postmenopausal bleeding (63814863) PMB (postmenopausal bleeding) (N95.0) Active confirmed Problem History of cancer of uterine body (132953278) History of uterine cancer (Z85.42) Active confirmed Problem Personal history of primary malignant neoplasm of female genital organ (620146799) Personal history of malignant neoplasm of uterus (Z85.42) Active confirmed Problem Gynecological examination normal (467085108471382) Cervical smear, as part of routine gynecological examination (Z01.419) 020 Active confirmed Annual without abnormal findings Vital Signs Blood pressure diastolic 70 mm Hg 01/06/2024 Height 58 in 01/06/2024 Blood pressure systolic 140 mm Hg 01/06/2024 Weight 226.2 lbs 01/06/2024 BMI 47.27 kg/m2 01/06/2024 Encounters Encounter Location Date Provider Diagnosis [facility] [address] [address] 11/14/2023 Aspen Ralph Encounter for screening for malignant neoplasm of breast Z12.31 [facility] [address] [address] 01/06/2024 Aspen Ralph Dense breast tissue R92.30 and Personal history of malignant neoplasm of uterus Z85.42 Assessments Encounter Date Diagnosis (ICD Code) Assessment Notes Treatment Notes Treatment Clinical Notes Section Notes 01/06/2024 Personal history of malignant neoplasm of uterus (ICD-10 - Z85.42) 01/06/2024 Dense breast tissue (ICD-10 - R92.30) Continue annual mammogram and clinical exam. 11/14/2023 Encounter for screening for malignant neoplasm of breast (ICD-10 - Z12.31) Plan Of Treatment Next Appt Details Provider Name:Aspen Ralph, 2025 09:15:00 AM, [address], [facility] [address], [place], [address], Insurance Providers Payer Name Payer Address Payer Phone Subscriber Number Group Number Insured Name Patient Relationship to Insured Coverage Start Date Coverage End Date Lm HERRERA [address] [place] [address] [id number] Kenia Mclaughlin Self - patient is the insured Medical (General) History Medical History History ICD Code HTN morbid obesity tubular adenoma endometrial cancer Stage !AGrade 1 diverticulitis Surgical History Surgery Date(Month/Year) x 2, tubal lymph node left rotator cuff surgery dx lap [facility] dissection Hospitalization History Reason Date(Month/Year) [facility] childbirth
--- OUTSIDE RECORDS SUMMARY | 2024-10-27 17:16 | XMS_ITS | Data Portability ---
Author Organization [facility] [employer] [place] - MSE Address [address] [place] [address] Assessment No assessment recorded. Plan of Treatment Reminders Order Date Submit Date Provider Last Modified By Organization Details Last Modified Time Details Appointments None recorded. Lab urinalysis, dipstick 2024 025 [email or web address] [facility], [address] [place], [address], 5 09:32:22 vitamin D, 25-hydroxy, total, serum 2023 [address] [facility], [address] [place] [address], [id number], 4 07:08:15 microalbumi n/creatinin e, mass ratio, urine 2023 024 [facility], [address] [place], [address], 4 09:55:09 HbA1c (hemoglobin A1c), blood 2023 024 [facility] [address] [place] [address], [id number], 4 07:08:14 lipid panel, serum 2023 024 [facility] [address] [place] [address], [address], 4 07:08:13 CMP, serum or plasma 2023 024 [facility]), [address] [place] [address], [id number], 4 07:08:13 CBC w/ auto diff 2023 024 [facility]), [address] [place] [address], [address], 4 07:08:12 TSH, ultra-sensi tive, serum 2023 024 [facility]), [address] [place] [address], [id number], 4 07:08:15 Hepatitis C IgG Ab, qual, serum 2023 024 [facility]), [address] [place], [address], 4 07:08:14 HIV 1 + 2, meaningful use set 2023 024 [facility]), [address] [place] [address], [id number], 4 07:08:16 Referral None recorded. Procedures None recorded. Surgeries None recorded. Imaging None recorded. Medication Orders prednisone 20 mg tablet 2023 025 [facility], [address] [place] [address], [id number], 5 10:04:05 Zithromax Z-Teofilo 250 mg tablet 2023 025 [facility], [address] [place] [address], [id number], 5 10:04:29 Colestid 1 gram tablet [email or web address] [place] [address] Pharmacy, [address] [place] [address], JANET Rainey, [id number], 5 08:56:19 krill oil 500 mg capsule 2023 025 [facility], [address] [place] [address], JANET Rainey, [id number], 5 09:27:12 cholecalcif satinder (vitamin D3) 25 mcg (1,000 unit) capsule 2023 024 [facility], [address] [place] [address], JANET Rainey, [id number], 4 10:18:15 ergocalcife rol (vitamin D2) 1,250 mcg (50,000 unit) capsule 2023 024 [facility], [address] [place], [place] [address], [id number], 4 10:18:24 lisinopril 20 mg-hydrochl orothiazide 12.5 mg tablet 2023 024 [facility], [address] [place] [address], JANET Rainey, [id number], 4 10:18:21 Mounjaro 2.5 mg/0.5 mL subcutaneou s pen injector [email or web address] [facility], [address] [place] [address], JANET Rainey, [id number], 5 09:24:04 metformin 500 mg tablet 2023 024 [facility], [address] [place] [address], JANET Rainey, [id number], 10:18:18 Patient TargetsNo targets recorded. Patient Instructions Encounter Date Encounter Id Patient Instructions Last Modified By Organization Details Last Modified Time 05/04/2024 [id number] Acute Sinusitis: Care Instructions Not available 05/04/2024 09:55:07 high cholesterol : care instructions [email or web address] Not available 05/04/2024 10:17:32 high blood pressure: care instructions [email or web address] Not available 05/04/2024 10:17:32 learning about high blood pressure [email or web address] Not available 05/04/2024 10:17:32 type 2 diabetes: care instructions Not available 05/04/2024 09:55:07 HIV testing: car e instructions Not available 05/04/2024 09:55:07 Reason for Referral None Reported. Results Created Date Observation Date Name Description Value Unit Range Abnormal Flag Note LastModifiedBy Organization Detail LastModifiedTime 05/04/20 24 05/05/2024 CBC WITH DIFFE RENTI AL/PL ATELE T WBC 9.1 x10e3 /uL 3.4-10 .8 normal Not Available [facility] ([facility]) [address] [place], [address], 05/05/2024 07:08:12 05/04/20 24 05/05/2024 CBC WITH DIFFE RENTI AL/PL ATELE T RBC 4.66 x10e6 /uL 3.77-5 .28 normal Not Available [facility] ([facility]) [address] [place], [address], 05/05/2024 07:08:12 05/04/20 24 05/05/2024 CBC WITH DIFFE RENTI AL/PL ATELE T hemoglobin 13.4 g/dL 11.1-1 5.9 normal Not Available [facility] ([facility]) [address] [place], [address], 05/05/2024 07:08:12 05/04/20 24 05/05/2024 CBC WITH DIFFE RENTI AL/PL ATELE T hematocrit 41.9 % 34.0-4 6.6 normal Not Available [facility] ([facility]) [address] [facility], [place], [address], 05/05/2024 07:08:12 05/04/20 24 05/05/2024 CBC WITH DIFFE RENTI AL/PL ATELE T MCV 90 fL 79-97 normal Not Available [facility] ([facility]) [address] [facility], [place], [address], 05/05/2024 07:08:12 05/04/20 24 05/05/2024 CBC WITH DIFFE RENTI AL/PL ATELE T MCH 28.8 pg 26.6-3 3.0 normal Not Available [facility] ([facility]) [address] [facility], [place], [address], 05/05/2024 07:08:12 05/04/20 24 05/05/2024 CBC WITH DIFFE RENTI AL/PL ATELE T MCHC 32.0 g/dL 31.5-3 5.7 normal Not Available [facility] ([facility]) [address] [place], [address], 05/05/2024 07:08:12 05/04/20 24 05/05/2024 CBC WITH DIFFE RENTI AL/PL ATELE T RDW 12.3 % 11.7-1 5.4 Not Available [facility] ([facility]) [address] [place], [address], 05/05/2024 07:08:12 05/04/20 24 05/05/2024 CBC WITH DIFFE RENTI AL/PL ATELE T platelets 296 x10e3 /uL 150-45 0 normal Not Available [facility] ([facility]) [address] [place], [address], 05/05/2024 07:08:12 05/04/20 24 05/05/2024 CBC WITH DIFFE RENTI AL/PL ATELE T neutrophils 65 % not estab. normal Not Available [facility] ([facility]) [address] [facility], [place], [address], 05/05/2024 07:08:12 05/04/20 24 05/05/2024 CBC WITH DIFFE RENTI AL/PL ATELE T lymphs 28 % not estab. normal Not Available [facility] ([facility]) [address] [facility], [place], [address], 05/05/2024 07:08:12 05/04/20 24 05/05/2024 CBC WITH DIFFE RENTI AL/PL ATELE T monocytes 5 % not estab. normal Not Available [facility] ([facility]) [address] [facility], [place], [address], 05/05/2024 07:08:12 05/04/20 24 05/05/2024 CBC WITH DIFFE RENTI AL/PL ATELE T eos 2 % not estab. normal Not Available [facility] ([facility]) [address] [facility], [place], [address], 05/05/2024 07:08:12 05/04/20 24 05/05/2024 CBC WITH DIFFE RENTI AL/PL ATELE T basos 0 % not estab. normal Not Available [facility] ([facility]) [address] [facility], [place], [address], 05/05/2024 07:08:12 05/04/20 24 05/05/2024 CBC WITH DIFFE RENTI AL/PL ATELE T immature cells PUBLIC HE[employer]INEER Not Available [facility] ([facility]) [address] [facility], [place], [address], 05/05/2024 07:08:12 05/04/20 24 05/05/2024 CBC WITH DIFFE RENTI AL/PL ATELE T neutrophils (absolute) 5.9 x10e3 /uL 1.4-7. 0 normal Not Available [facility] ([facility]) [address] [facility], [place], [address], 05/05/2024 07:08:12 05/04/20 24 05/05/2024 CBC WITH DIFFE RENTI AL/PL ATELE T lymphs (absolute) 2.5 x10e3 /uL 0.7-3. 1 normal Not Available [facility] ([facility]) [address] [facility], [place], [address], 05/05/2024 07:08:12 05/04/20 24 05/05/2024 CBC WITH DIFFE RENTI AL/PL ATELE T monocytes(ab solute) 0.4 x10e3 /uL 0.1-0. 9 normal Not Available [facility] ([facility]) [address] [place], [address], 05/05/2024 07:08:12 05/04/20 24 05/05/2024 CBC WITH DIFFE RENTI AL/PL ATELE T eos (absolute) 0.2 x10e3 /uL 0.0-0. 4 normal Not Available [facility] ([facility]) [address] [place], [address], 05/05/2024 07:08:12 05/04/20 24 05/05/2024 CBC WITH DIFFE RENTI AL/PL ATELE T baso (absolute) 0.0 x10e3 /uL 0.0-0. 2 normal Not Available [facility] ([facility]) [address] [facility], [place], [address], 05/05/2024 07:08:12 05/04/20 24 05/05/2024 CBC WITH DIFFE RENTI AL/PL ATELE T immature granulocytes 0 % not estab. Not Available [facility] ([facility]) [address] [place], [address], 05/05/2024 07:08:12 05/04/20 24 05/05/2024 CBC WITH DIFFE RENTI AL/PL ATELE T immature grans (abs) 0.0 x10e3 /uL 0.0-0. 1 Not Available [facility] ([facility]) [address], [place], [address], 05/05/2024 07:08:12 05/04/20 24 05/05/2024 CBC WITH DIFFE RENTI AL/PL ATELE T NRBC PUBLIC HEALTH ENGINEER Not Available [facility] ([facility]) [address], [place], [address], 05/05/2024 07:08:12 05/04/20 24 05/05/2024 CBC WITH DIFFE RENTI AL/PL ATELE T hematology comments: PUBLIC HEALTH ENGINEER Not Available [facility] ([facility]) [address], [place], [address], 05/05/2024 07:08:12 05/04/20 24 05/05/2024 COMP. METAB OLIC PANEL (14) glucose 114 mg/dL 70-99 above high normal Not Available [facility] ([facility]) [address], [place], [address], 05/05/2024 07:08:13 05/04/20 24 05/05/2024 COMP. METAB OLIC PANEL (14) BUN 23 mg/dL 8-27 normal Not Available [facility] ([facility]) [address] [facility] [place], [address], 05/05/2024 07:08:13 05/04/20 24 05/05/2024 COMP. METAB OLIC PANEL (14) creatinine 0.74 mg/dL 0.57-1 .00 normal Not Available [facility] ([facility]) [address] [place], [address], 05/05/2024 07:08:13 05/04/20 24 05/05/2024 COMP. METAB OLIC PANEL (14) eGFR 92 mL/mi n/1.7 3 >59 normal Not Available [facility] ([facility]) [address], [place], [address], 05/05/2024 07:08:13 05/04/20 24 05/05/2024 COMP. METAB OLIC PANEL (14) BUN/creatini ne ratio 31 12-28 above high normal Not Available [facility] ([facility]) [address] [facility], [place], [address], 05/05/2024 07:08:13 05/04/20 24 05/05/2024 COMP. METAB OLIC PANEL (14) sodium 141 mmol/ L 134-14 4 normal Not Available [facility] ([facility]) [address] [facility], [place], [address], 05/05/2024 07:08:13 05/04/20 24 05/05/2024 COMP. METAB OLIC PANEL (14) potassium 4.9 mmol/ L 3.5-5. 2 normal Not Available [facility] ([facility]) [address] [facility], [place], [address], 05/05/2024 07:08:13 05/04/20 24 05/05/2024 COMP. METAB OLIC PANEL (14) chloride 103 mmol/ L 96-106 normal Not Available [facility] ([facility]) [address] [facility], [place], [address], 05/05/2024 07:08:13 05/04/20 24 05/05/2024 COMP. METAB OLIC PANEL (14) carbon dioxide, total 23 mmol/ L 20-29 normal Not Available [facility] ([facility]) [address] [place], [address], 05/05/2024 07:08:13 05/04/20 24 05/05/2024 COMP. METAB OLIC PANEL (14) calcium 9.7 mg/dL 8.7-10 .3 normal Not Available [facility] ([facility]) [address] [facility] [place], [address], 05/05/2024 07:08:13 05/04/20 24 05/05/2024 COMP. METAB OLIC PANEL (14) protein, total 7.0 g/dL 6.0-8. 5 normal Not Available [facility] ([facility]) [address] [place], [address], 05/05/2024 07:08:13 05/04/20 24 05/05/2024 COMP. METAB OLIC PANEL (14) albumin 4.3 g/dL 3.9-4. 9 normal Not Available [facility] ([facility]) [address] [facility], [place], [address], 05/05/2024 07:08:13 05/04/20 24 05/05/2024 COMP. METAB OLIC PANEL (14) globulin, total 2.7 g/dL 1.5-4. 5 Not Available [facility] ([facility]) [address] [place], [address], 05/05/2024 07:08:13 05/04/20 24 05/05/2024 COMP. METAB OLIC PANEL (14) bilirubin, total 0.4 mg/dL 0.0-1. 2 normal Not Available [facility] ([facility]) [address] [place], [address], 05/05/2024 07:08:13 05/04/20 24 05/05/2024 COMP. METAB OLIC PANEL (14) alkaline phosphatase 75 IU/L 44-121 normal Not Available [facility] ([facility]) [address] [place], [address], 05/05/2024 07:08:13 05/04/20 24 05/05/2024 COMP. METAB OLIC PANEL (14) AST (SGOT) 14 IU/L 0-40 normal Not Available [facility] ([facility]) [address] [place], [address], 05/05/2024 07:08:13 05/04/20 24 05/05/2024 COMP. METAB OLIC PANEL (14) ALT (SGPT) 19 IU/L 0-32 normal Not Available [facility] ([facility]) [address] [place], [address], 05/05/2024 07:08:13 05/04/20 24 05/05/2024 LIPID PANEL cholesterol, total 223 mg/dL 100-19 9 above high normal Not Available [facility] ([facility]) [address] [place], [address], 05/05/2024 07:08:13 05/04/20 24 05/05/2024 LIPID PANEL triglyceride s 156 mg/dL 0-149 above high normal Not Available [facility] ([facility]) [address] [place], [address], 05/05/2024 07:08:13 05/04/20 24 05/05/2024 LIPID PANEL HDL cholesterol 52 mg/dL >39 normal Not Available [facility]) [address] [place], [address], 05/05/2024 07:08:13 05/04/20 24 05/05/2024 LIPID PANEL VLDL cholesterol jayne 28 mg/dL 5-40 Not Available [facility] ([facility]) [address] [place], [address], 05/05/2024 07:08:13 05/04/20 24 05/05/2024 LIPID PANEL LDL chol calc ([facility]) 143 mg/dL 0-99 above high normal Not Available [facility] ([facility]) [address] [place], [address], 05/05/2024 07:08:13 05/04/20 24 05/05/2024 LIPID PANEL LDL calc comment: PUBLIC HEALTH ENGINEER Not Available [facility] ([facility]) [address] [place], [address], 05/05/2024 07:08:13 12/20/05/05/2024 HCV ANTIB LIVIA CASCA DE(PC R/GEN O) HCV Ab Non Reacti ve non reacti ve Not Available [facility] ([facility]) [address] [facility], [place], [address], 05/05/2024 07:08:14 05/04/20 24 05/05/2024 HCV ANTIB LIVIA CASCA DE(PC R/GEN O) interpretati on: Commen t Not infec leonides with HCV unles s early or acute infec tion is suspe cted (whic h may be delay ed in an immun ocomp romis ed indiv idual ), or other evide nce exist s to indic ate HCV infec tion. Not Available [facility] ([facility]) [address] [facility], [place], [address], 05/05/2024 07:08:14 05/04/20 24 05/05/2024 HEMOG LOBIN A1C hemoglobin A1C 6.4 % 4.8-5. 6 above high normal Predi abete s: 5.7 - 6.4 Diabe juanita: >6.4 Glyce rhina contr ol for adult s with diabe juanita: <7.0 Not Available [facility] ([facility]) [address] [facility], [place], [address], 05/05/2024 07:08:14 05/04/20 24 05/05/2024 TSH TSH 0.780 uIU/m L 0.450- 4.500 normal Not Available [facility] ([facility]) [address] [place], [address], 05/05/2024 07:08:15 05/04/20 24 05/05/2024 VITAM IN D, 25-HY DROXY vitamin D, 25-hydroxy 38.8 NG/mL 30.0-1 00.0 Vitam in D defic iency has been defin ed by the Insti tute of Medic ine and an Endoc rine Socie ty pract ice guide line as a level of serum 25-OH vitam in D less than 20 ng/mL (1,2) . The Endoc rine Socie ty went on to furth er defin e vitam in D insuf ficie ncy as a level betwe en 21 and 29 ng/mL (2). 1. IOM (Inst itute of Medic ine). 2010. Dieta ry refer ence intak es for calci um and D. [place]: The [facility] Press . 2. Rajesh thornton [place], Dyan soria [place], Garcia off-F errar i GARCIA, et al. Evalu ation , treat ment, and preve ntion of vitam in D defic iency : an Endoc rine Socie ty clini jayne pract ice guide line. JCEM. 2010; 96(7) :1911 -30. Not Available [facility] ([facility]) [address] [facility], [place], [address], 05/05/2024 07:08:15 05/04/20 24 05/05/2024 HIV AB/P2 4 AG WITH REFLE X HIV Ab/P24 Ag screen Non Reacti ve non reacti ve HIV-1 /HIV- 2 antib odies and HIV-1 p24 antig en were NOT detec leonides. There is no labor atory evide nce of HIV infec tion. HIV Negat fany Not Available [facility] ([facility]) [address] [facility], [place], [address], 05/05/2024 07:08:16 05/04/20 24 05/04/2024 micro album in/cr eatin ine, mass ratio , urine Microalbumin 10 mg/L Not Available [facility] [address] [place], [address], 05/04/2024 08:54:17 05/04/20 24 05/04/2024 micro album in/cr eatin ine, mass ratio , urine Creatinine 100 mg/dL Not Available [facility] [address] [place], [address], 05/04/2024 08:54:17 05/04/20 24 05/04/2024 micro album in/cr eatin ine, mass ratio , urine Ratio <30 mg/g Not Available [address], [place], [address], 05/04/2024 08:54:17 10/02/19 25 10/01/2024 urina lysis , dipst ick Leukocytes Negati ve Not Available [address], [place], [address], 10/01/2024 08:52:33 10/02/19 25 10/01/2024 urina lysis , dipst ick Nitrite negati ve Not Available [address], [address], 10/01/2024 08:52:33 10/02/19 25 10/01/2024 urina lysis , dipst ick Urobilinogen .2 Not Available [address], [place], [address], 10/01/2024 08:52:33 10/02/19 25 10/01/2024 urina lysis , dipst ick Protein Negati ve Not Available [address], [address], 10/01/2024 08:52:33 10/02/19 25 10/01/2024 urina lysis , dipst ick pH 5.5 Not Available [address], [address], 10/01/2024 08:52:33 10/02/19 25 10/01/2024 urina lysis , dipst ick Blood Negati ve Not Available [address], [address], 10/01/2024 08:52:33 10/02/19 25 10/01/2024 urina lysis , dipst ick Specific [place] 1.010 Not Available [address], [address], 10/01/2024 08:52:33 10/02/19 25 10/01/2024 urina lysis , dipst ick Ketone Negati ve Not Available [address], [address], 10/01/2024 08:52:33 10/02/19 25 10/01/2024 urina lysis , dipst ick Bilirubin Negati ve Not Available [address], [address], 10/01/2024 08:52:33 10/02/19 25 10/01/2024 urina lysis , dipst ick Glucose Negati ve Not Available [address], [address], 10/01/2024 08:52:33 10/02/19 25 10/01/2024 urina lysis , dipst ick Appearance Clear Not Available [address], [address], 10/01/2024 08:52:33 10/02/19 25 10/01/2024 urina lysis , dipst ick Color Yellow Not Available [address], [address], 10/01/2024 08:52:33 Result Notes None recorded. Problems Name Problem SNOMED Code Status Onset Date Resolution Date Notes Provider Name and Address Organization Details Recorded Time Acute sinusitis 31053617 Completed 202307/03/[address] [facility] [address] [place] [address], [address], [employer] 5 09:25:12 Hyperlipidem ia 05033116 Active 2023 [facility] [address] [place] [address], [address], [employer] 4 08:16:49 Essential hypertension 16915320 Active 2023 [facility] [address] [place] [address], [address], [employer] 4 08:16:41 Diabetes mellitus 26424085 Active 2023 [facility] [address] [place] [address], [address], [employer] 4 08:16:56 Vitamin D deficiency 96886563 Active 2023 [facility] [address] [place] [address], [address], [employer] 4 08:17:24 Problem Notes None recorded. Procedures Surgical History Date Name Laterality Status Provider Name and Address Organization Details Recorded Time 05/04/20 24 Diabetic Foot Screen completed [facility] [address] [place] [address], [address], [employer] 05/04/2024 11:58:32 11/15/19 24 Most Recent Mammogram completed [employer] 05/04/2024 08:42:37 Caesarean Section completed [employer] 05/04/2024 08:42:38 Tonsillectomy completed [employer] 05/04/2024 08:42:38 Tubal Ligation completed [employer] 05/04/2024 08:42:38 Endometrial Biopsy completed [employer] 05/04/2024 08:42:38 Hysterectomy completed [employer] 05/04/2024 08:50:16 Imaging Results None recorded. Procedure Notes None recorded. Medical Equipment None Reported. Allergies No known drug allergies Medications Name Sig Start Date Stop Date Status Note LastModified by Organization Details LastModified Time metformin 500 mg tablet TAKE ONE TABLET BY MOUTH 2 TIMES A DAY 2024 active Not Available Not Available Not Avai lable lisinopril 20 mg-hydrochl orothiazide 12.5 mg tablet TAKE ONE TABLET BY MOUTH ONCE A DAY active Not Available Not Available No t Available azithromyci n 250 mg tablet TAKE 2 TABLETS (500 MG) BY ORAL ROUTE ONCE DAILY FOR 1 DAY THEN 1 TABLET (250 MG) BY ORAL ROUTE ONCE DAILY FOR 4 DAYS 07/03 completed Not Available Not Available Not Available prednisone 20 mg tablet Take 1 tablet twice a day by oral route as directed for 5 days. 07/03 completed Not Available Not Available Not Available aspirin 81 mg tablet Take 1 tablet every day by oral route. active Not Available Not Available No t Available ergocalcife rol (vitamin D2) 1,250 mcg (50,000 unit) capsule TAKE ONE CAPSULE BY MOUTH ONCE WEEKLY active Not Available Not Available No t Available Colestid 1 gram tablet Take 2 tablets twice a day by oral route as directed for 90 days, for high cholester ol. 10/01 completed Not Available Not Available Not Available amoxicillin 875 mg-potassiu m clavulanate 125 mg tablet 05/04 completed Not Available Not Available Not Available cholecalcif satinder (vitamin D3) 25 mcg (1,000 unit) capsule Take 1 capsule every day by oral route as directed for 90 days, for Vitamin D deficienc y. 2024 active Not Available Not Available Not Avai lable rosuvastati n 5 mg tablet TAKE ONE TABLET BY MOUTH AT BEDTIME FOR HIGH CHOLESTER OL active Not Available Not Available No t Available cholecalcif satinder (vitamin D3) 25 mcg (1,000 unit) tablet TAKE ONE TABLET BY MOUTH ONCE A DAY FOR VITAMIN DEFICIENC Y active Not Available Not Available No t Available krill oil 500 mg capsule Take 1 capsule every day by oral route as directed for 90 days, for high cholester ol. 10/01 completed Not Available Not Available Not Available krill oil 05/04 completed Not Available Not Available Not Available Accu-Chek Guide test strips USE 1 STRIP TO CHECK GLUCOSE 4 TIMES DAILY active Not Available Not Available No t Available Accu-Chek Guide Me Glucose Meter USE DIRECTED active Not Available Not Available No t Available Acid-Pep 20 mg tablet Take 2 tablets every day by oral route. active Not Available Not Available No t Available Sutab 1.479-0.188 -0.225 gram tablet 05/04 completed Not Available Not Available Not Available Mounjaro 7.5 mg/0.5 mL subcutaneou s pen injector Inject 0.5 mL every week by subcutane ous route for 28 days. 2024 active Not Available Not Available Not Avai lable Mounjaro 5 mg/0.5 mL subcutaneou s pen injector INJECT 0.5 ML SUBCUTANE OUSLY ONCE WEEKLY active Not Available Not Available No t Available Mounjaro 2.5 mg/0.5 mL subcutaneou s pen injector INJECT 0.5 ML SUBCUTANE OUSLY ONCE WEEKLY FOR DIABETES 07/03 completed Not Available Not Available Not Available Ozempic 0.25 mg or 0.5 mg (2 mg/3 mL) subcutaneou s pen injector INJECT 0.5 MG SUBCUTANE OUSLY ONCE WEEKLY 07/03 completed Not Available Not Available Not Available Vitals Date Recorded Body height Body mass index (BMI) Body weight Heart rate Body temperature Oxygen saturation Oxygen saturation in Arterial blood by Pulse oximetry Systolic blood pressure Diastolic blood pressure Provider Name and Address Organization Details Last Updated DateTime 5 149.86 cm 44.8 kg/m2 455352. 07 g 62 /min 97.7 [degF] 97 % 97 % 124 mm[Hg] 76 mm[Hg] [facility] [employer] 5 08:55:44 Date Recorded Body weight Body mass index (BMI) Body height Heart rate Oxygen saturation Oxygen saturation in Arterial blood by Pulse oximetry Systolic blood pressure Diastolic blood pressure Provider Name and Address Organization Details Last Updated DateTime 4 058582. 82 g 45.1 kg/m2 149.86 cm 66 /min 97 % 97 % 112 mm[Hg] 73 mm[Hg] Berna Jameson [employer] 08:43:57 Social History Question Answer Notes LastModified by Organizat ion Details LastModified Time Tobacco Smoking Status Never Smoker Berna Jameson zahra, [employer] 05/04/2024 08:42:37 Do You Have An Advance Directive? No Information not available 05/04/2024 Is Your Home Air Conditioned? Yes Information not available 05/04/2024 If You Are , What Was Your Level Of Alcohol Consumption Prior To ? None Information not available 05/04/2024 How Many Years Have You Consumed Alcohol? 20 Information not available 05/04/2024 Do You Wear A Helmet When Biking? No Information not available 05/04/2024 Are You Blind Or Do You Have Difficulty Seeing? No Information not available 05/04/2024 What Is Your Level Of Caffeine Consumption? Occasional Information not available 05/04/2024 What Type Of Compliance Engineer Do You Use? None Information not available 05/04/2024 Have You Been To An Area Known To Be High Risk For COVID-19? No Information not available 05/04/2024 Are You Deaf Or Do You Have Serious Difficulty Hearing? No Information not available 05/04/2024 What Type Of Diet Are You Following? CARBOHYDRATE Information not available 05/04/2024 What Is The Highest Grade Or Level Of School You Have Completed Or The Highest Degree You Have Received? [id number] Information not available 05/04/2024 Who Is Your Employer? [employer] Of Information not available 05/04/2024 How Many Days Of Moderate To Strenuous Exercise, Like A Brisk Walk, Did You Do In The Last 7 Days? 3 Information not available 05/04/2024 Have There Been Any Changes To Your Family Or Social Situation? No Information no t available 05/04/2024 Are There Any Guns Present In Your Home? No Information not available 05/04/2024 Which Of Your Hands Is Dominant? Right Information not available 05/04/2024 What Is Your Home Situation? Other Information not available 05/04/2024 Do You Have A Medical Power Of Television Repairer? No Information not available 05/04/2024 What Was The Date Of Your Most Recent Tobacco Screening? 10/01/2024 Information not available 10/01/2024 Are There Any Occupational Health Risks Where You Work? No Information not available 05/04/2024 Do You Have Any Pets? No Information not available 05/04/2024 Do You Use Protection During Sex? No Information not available 05/04/2024 What Is Your Relationship Status? Information not available 05/04/2024 Have You Repeated Any Grades? No Information not available 05/04/2024 Do You Use Your Seat Belt Or Car Seat Routinely? Yes Information not available 05/04/2024 Are You Sexually Active? Yes Information not available 05/04/2024 Do You Have Any Siblings? Yes Information not available 05/04/2024 Do You Have Smoke And Carbon Monoxide Detectors In Your Home? Yes Information not available 05/04/2024 Are You Passively Exposed To Smoke? Yes Information no t available 05/04/2024 Are There Any Smokers In Your House? No Information not available 05/04/2024 Do You Participate In Social Media? Yes Information not available 05/04/2024 Do You Use Sunscreen Routinely? No Information not available 05/04/2024 Has Tobacco Cessation Counseling Been Provided? No Information not available 05/04/2024 Have You Recently Traveled Abroad? No Information not available 05/04/2024 Do You Have Difficulty Walking Or Climbing Stairs? No Information not available 05/04/2024 Are You Currently In School? No Information not available 05/04/2024 What Contraceptive Method Was Reported At Start Of This Visit? Female Sterilization Information not available 10/01/2024 Do You Have Any Dietary Restrictions? Yes Information not available 10/01/2024 How Many Days In The Past Year Have You Consumed 4 Or More Drinks? 0 Information no t available 05/04/2024 Sex: Female Functional Status Question Answer Note LastModified by Organizat ion Details LastModified Time Do you use any illicit or recreational drugs? No Information not available 05/04/2024 Do you or have you ever used any other forms of tobacco or nicotine? No Information not available 05/04/2024 What is your level of alcohol consumption? Moderate Information not available 05/04/2024 Are you currently employed? Yes Information not available 05/04/2024 Do you have transportation difficulties? No Information not available 05/04/2024 Are you able to walk? YESWOREST Information not available 05/04/2024 Do you have difficulty doing errands alone? No Information not available 05/04/2024 Are you able to care for yourself? Yes Information not available 05/04/2024 Do you have difficulty dressing or bathing? No Information not available 05/04/2024 What is your exercise level? Moderate Information not available 05/04/2024 Mental Status Question Answer Note LastModified by Organizat ion Details LastModified Time Do you feel stressed (tense, restless, nervous, or anxious, or unable to sleep at night)? [id number] Information not available 05/04/2024 Do you have difficulty concentrating, remembering or making decisions? No Information no t available 05/04/2024 Are you or have you been involved with bullying? No Information not available 05/04/2024 Family History Relationship Description Onset Age of this Age Resolved Age Notes LastModified by Organization Details LastModified Time Mother Hypertensive disorder Not available 2023 08:42:37 Medical History Condition Response Coronary Artery Disease N Other N Gout N Kidney Stones N Blood Diseases N Hyperthyroidism N Blood Transfusion N Breast Cancer N Emergency room visit since last appointm ent. N COPD N Depression N Dermatologic Disorders N Lung Disease N Hypothyroidism N Developmental or Behavioral Disorders N Defects or Inherited Disease N Breast Problem N Difficulty Swallowing N Anesthesia Complications N History of STI N Anxiety Disorder N Meniere's disease N Autoimmune disease N Muscle, Joint, or Bone Problems N Obesity Y Vision or Eye Problems N Arthritis N Infertility N Polyps N Mental Disorder N Congenital Anomalies N Acid Reflux (GERD) N Cancer Y Stroke N Neurologic/Epilepsy N Endometriosis N Bladder or Kidney Problems N High Cholesterol Y Liver Disease N Psychiatric/Mental Health Condition N Organ Transplant N Fibromyalgia N Headaches N Schizophrenia N Dialysis N Kidney Disease N Allergies/Hayfever N Heart Problems N Ear or Hearing Problems N Hospitalizations N Learning Disorder N Artificial Joints N Thyroid Problems N GI Problems N Acne N ADD/ADHD N Eating Disorder N Anemia N Constipation N Mental Illness N Ovarian Cancer N Diabetes Y Bedwetting N Hepatitis/Liver Disease N Tuberculosis N Eczema N Diverticulitis N Abuse/Domestic Violence N Asthma N Trauma/Violence N Substance Abuse N Reflux/GERD N Depression/ depression N Hepatitis N Heart Disease N Pulmonary Embolism N Tourette Syndrome N Chronic Ear Infections N Pre-Eclampsia N Hypertension Y Chicken Pox N Autism Spectrum Disorder (ASD) N Osteoporosis N Thrombophilias N Gynecological History Statement/Question Response Menses Monthly N HPV Vaccine N Date of Last Pap Smear Most Recent Mammogram 11/15/2023 Age at First Child 20 Obstetrics History GPAL:G 0 P 0 0 0 0 Immunizations Vaccine Type Date Status Note Provider Nam e and Address Organization Details Recorded Time COVID-19, mRNA, LNP-S, PF, 100 mcg/0.5mL dose or 50 mcg/0.25mL dose 06/04/2020 completed Berna Vice null, [employer] 05/04/2024 08:42:47 COVID-19, mRNA, LNP-S, PF, 100 mcg/0.5mL dose or 50 mcg/0.25mL dose 07/04/2020 completed Berna Vice null, [employer] 05/04/2024 08:42:47 Td (adult) 09/07/2021 completed Berna Vice null, [employer] 05/04/2024 08:42:47 Hep B, adult 12/27/2001 completed Berna Vice null, [employer] 05/04/2024 08:42:47 Hep B, adult 04/24/2002 completed Berna Vice null, [employer] 05/04/2024 08:42:47 Hep B, adult 04/24/2007 completed Berna Vice null, [employer] 05/04/2024 08:42:47 Hep A, adult 09/22/2018 completed Berna Vice null, [employer] 05/04/2024 08:42:47 Hep A, adult 03/15/2018 completed Berna Vice null, [employer] 05/04/2024 08:42:47 Past Encounters Encounter ID Performer Location Encounter Start Date Encounter Closed Date Diagnosis/Indication Diagnosis SNOMED-CT Code Diagnosis ICD10 Code Diagnosis Note [id number] N[facility] [address] [facility] [place] [address] 05/04/2024 08:27:15 05/04/2024 09:33:07 Type 2 diabetes mellitus without complication 475272629 E11.9 HIV screening 368596124 Z11.4 Hepatitis C screening 41 6055023 Z11.59 Vitamin D deficiency 347 02583 E55.9 Acute sinusitis 64543225 J01.90 Hyperlipidemia 32772841 E78.5 Essential hypertension 03892540 I10 [id number] N[facility] [address] [facility] [place] [address] 10/01/2024 08:36:37 10/01/2024 09:28:38 Physical examination 8081508 Z00.00 Administra tive reason for encounter 375424326 Z02.4 Health Concerns Section Related Observation LastModified by Organization Detai ls LastModified Time None Recorded Concern Status LastModified by Organization Details LastModified Time None Recorded Advance Directives Directive N: Payers Insurance Date Sequence Insurance Name Policy Number Policy Garcia Covered Member ID Garcia Member ID Guarantor Name 09/29/2024 1 [place] [id number] Kenia Haynesaker [id number] Kenia Arnoldo Notes Date Note Type Note Provider Name and Address Organization Details Recorded Time 05/04/2024 text/html Patient presents to establish care.History of diabetes, Vitamin D deficiency, HLD, HTN, GERDSinus pain and pressure, blood mucous X 2 weeks. OTC meds are not helping. N[facility] [address] [place] [address], [phone], [place] [employer] 05/04/2024 12:00:36 10/01/2024 text/html CDL Physical [facility] [address] [place] [address], [place], [address], [employer] 10/01/2024 10:15:06 OBGyn Episode No OBEpisode recorded.
--- OUTSIDE RECORDS SUMMARY | 2024-10-27 17:16 | XMS_ITS | Clinical Summary ---
Author Organization [employer] Address [address] [place] [id number] Care Team Providers Care Regional Climate Change Analyst Name Role Phone Altagracia Marlow PA-C Primary Care Provider [phone] Aspen Ralph MD Unavailable Social History Tobacco [...] Date Chase rded Speak language other than [place]ome[place] at home Not on file 06/03/2023 Want [...] Info) Description 11/14/2024 4:00 PM EDT Appointment [address] [place] [phone] Health Maintenance Due Date Last Done Comments CT Colonography 1963 Colonoscopy 1963 Colorectal Cancer Screening 1963 FOBT/FIT 1963 Fit-DNA (Cologuard) 1963 Sigmoidoscopy 1963 Depression Screening (12+) 1975 Tobacco Cessation Counseling and Screening (12+) 1975 HIV Screening 1978 Hepatitis C Screening 1981 Pap Smear 01/12/1984 Lipid Panel 01/12/2008 Pneumococcal 50+ years (1 of 1 - PCV) 2013 Shingles Vaccine (Zoster) (1 of 2) 2013 COVID-19 VACCINE (3 - 2023-2 5 season) 2024 07/04/2020, 06/04/2020 Influenza Vaccine (Season Ended) 2025 Breast Cancer Screening 11/13/2025 11/14/19 24, 12/31/2022, 12/25/2021, Additional history exists DTAP/TDAP/TD VACCINES (2 - T d or Tdap) 09/08/2031 09/07/2021 Respiratory Syncytial Virus (RSV) Adult or (1 - 1-dose 75+ series) 2038 Procedures Procedure Name Priority Date/Time Associated Diagnosis [...] the next mammogram. At our facility, a tanana marker is positioned over a visible skin [...] cancer. COMPARISON STUDY: 2022 through 2015 from [facility] FINDINGS: Craniocaudal and mediolateral oblique images [...] the benefit of computer aided detection (CAD). us Altagracia Marlow PA-C IMG MAMMOGRAPHY ORDERABLES Fi nal Result from Last 3 Months or Most Recently Relevant to Health Maintenance Insurance BLUE CROSS/BLUE SHIELD Care Teams Regional Climate Change Analyst Relationship Specialty Start Date End Date Altagracia Marlow PA-C [address] [place] [address] PCP - General Physician [employer] 12/31/22 Aspen Ralph MD [address] [address] Referring Physician Gynecology 12/31/22
--- OUTSIDE RECORDS SUMMARY | 2024-10-27 17:16 | XMS_ITS | Continuity of Care Document ---
Author Organization [facility] Address [address] [place] [address] Assessment No assessment recorded. Plan of Treatment Reminders Order Date Submit Date Provider Last Modified By Organization Details Last Modified Time Details Appointments None recorded. Lab urinalysis , dipstick 2024 025 [facility], [address] [place] [address], [phone], 09:32:22 Referral None recorded. Procedures None recorded. Surgeries None recorded. Imaging None recorded. Medication Orders None recorded. Patient TargetsNo targets recorded. Patient InstructionsNo instructions recorded. Reason for Referral None Reported. Results Created Date Observation Date Name Description Value Unit Range Abnormal Flag Note LastModifiedBy Organization Detail LastModifiedTime 10/02/1910/01/2024 urina lysis , dipst ick Leukocytes Negati ve Not Available [facility] [address] [place] [address], [phone], 10/01/2024 08:52:33 10/02/19 25 10/01/2024 urina lysis , dipst ick Nitrite negati ve Not Available [facility] [address] [place] [address], [phone], 10/01/2024 08:52:33 10/02/1910/01/2024 urina lysis , dipst ick Urobilinogen .2 Not Available [address], [place], [address], 10/01/2024 08:52:33 10/02/19 25 10/01/2024 urina lysis , dipst ick Protein Negati ve Not Available [address], [place], [address], 10/01/2024 08:52:33 10/02/19 25 10/01/2024 urina lysis , dipst ick pH 5.5 Not Available [address], [place], [address], 10/01/2024 08:52:33 10/02/19 25 10/01/2024 urina lysis , dipst ick Blood Negati ve Not Available [address], [place], [address], 10/01/2024 08:52:33 10/02/19 25 10/01/2024 urina lysis , dipst ick Specific [place] 1.010 Not Available [address], [place], [address], 10/01/2024 08:52:33 10/02/19 25 10/01/2024 urina lysis , dipst ick Ketone Negati ve Not Available [address], [place], [address], 10/01/2024 08:52:33 10/02/19 25 10/01/2024 urina lysis , dipst ick Bilirubin Negati ve Not Available [address], [place], [address], 10/01/2024 08:52:33 10/02/19 25 10/01/2024 urina lysis , dipst ick Glucose Negati ve Not Available [facility] [address] [place] [address], [phone], 10/01/2024 08:52:33 10/02/1910/01/2024 urina lysis , dipst ick Appearance Clear Not Available [facility] [address] [place] [address], [phone], 10/01/2024 08:52:33 10/02/1910/01/2024 urina lysis , dipst ick Color Yellow Not Available [facility] [address] [place] [address], [phone], 10/01/2024 08:52:33 Result Notes None recorded. Problems Name Problem SNOMED Code Status Onset Date Resolution Date Notes Provider Name and Address Organization Details Recorded Time Acute sinusitis 96197530 Completed 202307/03/2024 [facility] [address] [place] [address], [phone], [employer] 5 09:25:12 Hyperlipidem ia 09894817 Active 2023 N[facility] [address] [place] [address], [phone], [employer] 4 08:16:49 Essential hypertension 71859306 Active 2023 N[facility] [address] [place] [address], [address], [place] [employer] 4 08:16:41 Diabetes mellitus 24536328 Active 2023 N[facility] [address] [place] [address], [phone], [employer] 4 08:16:56 Vitamin D deficiency 71369020 Active 2023 N[facility] [address] [place] [address], [address], [place] [employer]. 08:17:24 Problem Notes None recorded. Procedures Surgical History Date Name Laterality Status Provider Name and Address Organization Details Recorded Time 05/04/20 Diabetic Foot Screen completed [facility] [address] [place] [address], [phone], [employer] 05/04/2024 11:58:32 11/15/19 Most Recent Mammogram completed [facility]. 05/04/2024 08:42:37 Caesarean Section completed [email or web address]. 05/04/2024 08:42:38 Tonsillectomy completed [employer]. 05/04/2024 08:42:38 Tubal Ligation completed [employer]. 05/04/2024 08:42:38 Endometrial Biopsy completed [employer]. 05/04/2024 08:42:38 Hysterectomy completed [facility]. 05/04/2024 08:50:16 Imaging Results None recorded. Procedure [...] and Address Organization Details Last Updated DateTime 149.86 cm 44.8 kg/m2 451134. 07 g 62 /min 97.7 [degF] 97 % 97 % 124 mm[Hg] 76 mm[Hg] [employer]. 08:55:44 Social History Question Answer Notes LastModified by Organizat ion Details LastModified Time Tobacco Smoking Status Never Smoker [employer] [email or web address] 05/04/2024 08:42:37 Do You Have An Advance [...] Information not available 05/04/2024 What Type Of Lithopone Charger Do You Use? None Information not available [...] Or The Highest Degree You Have Received? [id number] Information not available 05/04/2024 Who Is Your Employer? [employer] Information not available 05/04/2024 How Many Days [...] Do You Have A Medical Power Of Office Systems Technology Instructor? No Information not available 05/04/2024 What Was [...] anxious, or unable to sleep at night)? [id number] Information not available 05/04/2024 Do you have [...] Stones N Blood Diseases N Hyperthyroidism N Breast Cancer N Blood Transfusion N Emergency room visit since last appointm ent. N Hypothyroidism N Lung Disease N Dermatologic Disorders N COPD N Depression N Developmental or Behavioral Disorders N Defects or Inherited Disease N Breast Problem N Difficulty Swallowing N Anesthesia Complications N History of STI N Meniere's disease N Anxiety Disorder N Muscle, Joint, or Bone Problems N Autoimmune disease N Obesity Y Vision or Eye Problems N Arthritis N Polyps N Infertility N Mental Disorder N Congenital Anomalies N Acid Reflux (GERD) N Cancer Y Stroke N Neurologic/Epilepsy N Endometriosis N Bladder or Kidney Problems N High Cholesterol Y Liver Disease N Psychiatric/Mental Health Condition N Organ Transplant N Headaches N Schizophrenia N Dialysis N Fibromyalgia N Kidney Disease N Allergies/Hayfever N Heart [...] N Pulmonary Embolism N Tourette Syndrome N Pre-Eclampsia N Hypertension Y Chronic Ear Infections N Osteoporosis N Chicken Pox N Autism Spectrum Disorder (ASD) N Thrombophilias N Gynecological History Statement/Question Response [...] dose or 50 mcg/0.25mL dose 06/04/2020 completed Bernadulce sweeney, [employer] 05/04/2024 08:42:47 COVID-19, mRNA, LNP-S, PF, 100 mcg/0.5mL dose or 50 mcg/0.25mL dose 07/04/2020 completed Bernadulce Jameson null, [employer] 05/04/2024 08:42:47 Td (adult) 09/07/2021 completed Berna Vice null, [employer] 05/04/2024 08:42:47 Hep B, adult 12/27/2001 completed Berna Vice null, [employer] 05/04/2024 08:42:47 Hep B, adult 04/24/2002 completed Berna Vice null, [employer] 05/04/2024 08:42:47 Hep B, adult 04/24/2007 completed Berna Vice null, [employer] 05/04/2024 08:42:47 Hep A, adult 09/22/2018 completed Berna Vice null, [employer] 05/04/2024 08:42:47 Hep A, adult 03/15/2018 completed Berna Vice null, [employer] 05/04/2024 08:42:47 Past Encounters Encounter ID Performer Location Encounter Start Date Encounter Closed Date Diagnosis/Indication Diagnosis SNOMED-CT Code Diagnosis ICD10 Code Diagnosis Note [id number] [facility] [address] [address] 10/01/2024 08:36:37 10/01/2024 09:28:38 Physical examination 1627708 Z00.00 Administra tive reason for encounter 479943767 Z02.4 Health Concerns Section Related Observation LastModified by Organization Detai ls LastModified Time None Recorded Concern Status LastModified by Organization Details LastModified Time None Recorded Payers Encounter Date Sequence Insurance Name Policy Number Policy Garcia Covered Member ID Garcia Member ID Guarantor Name 10/01/2024 1 [place] [id number] Kenia Mclaughlin [id number] Kenia Mclaughlin Notes Date Note Type Note Provider Name and Address Organization Details Recorded Time 10/01/2024 text/html CDL Physical [facility] [address] [place] [address], [phone], [employer] 10/01/2024 10:15:06 OBGyn Episode No OBEpisode recorded.
[2024-10-27 17:17] VITALS: BP 163/76; PULSE 72; O2SAT 97
[2024-10-27 17:22] VITALS: BP 163/76; PULSE 73; RESP 20; TEMP 36.8; O2SAT 97; BMI 43.0
[2024-10-27 17:51] VITALS: BP 132/61; PULSE 70; RESP 20; TEMP 36.8; O2SAT 98
== END 2024-10-27 17:57 | disposition home or self-care (01) ==
PROVIDERS: Emergency Provider Emergency Medicine; PCP Physician Assistant
DX: S61.412A Laceration without foreign body of left hand, initial encounter (principal); W26.0XXA Contact with knife, initial encounter
CPT/HCPCS: 12002; 99283